=== PATIENT | male | born 1965 | race Caucasian/White ===

== ENCOUNTER 2016-05-11 12:28 | Emergency (ER) | payer MEDICAID ==
[2016-05-11 12:36] VITALS: BP 130/77
--- NOTE | 2016-05-11 13:11 | ED Physician Documentation ---
History of Present Illness - Stated complaint Stated Complaint: L KNEE PAIN - Chief complaint Chief Complaint: Ext Problem - History obtained from History obtained from: Patient, Family - History of Present Illness Timing: How many days ago (4) - Additonal information Additional information: 51 year old male with a history of gout presents with 4 days of right knee pain and swelling consistent with what he has had previously. He has pain with weightbearing and with range of motion to the knee. He has taken some aspirin without relief. Review of Systems Constitutional: denies: Fever, Chills, Myalgias, Fatigue Eyes: denies: Decreased vision Ears: denies: Ear pain Nose: denies: Congestion Throat: denies: Sore throat Cardiac: denies: Chest pain / pressure, Palpitations Respiratory: denies: Dyspnea, Cough GI: denies: Abdominal Pain, Nausea, Vomiting : denies: Dysuria Skin: denies: Rash Musculoskeletal: reports: Joint pain, Joint swelling, Pain with weight bearing. denies: Neck pain, Back pain Neurologic: denies: Generalized weakness, Focal weakness, Numbness PD PAST MEDICAL HISTORY - Past Medical History Cardiovascular: Hypertension, High cholesterol - Past Surgical History Past Surgical History: No - Present Medications Home Medications: Ambulatory Orders Medication Instructions Recorded Confirmed Fenofibrate 160 mg PO ONCE 06/18/14 10/06/14 Simvastatin 40 mg PO ONCE 06/18/14 10/06/14 Ibuprofen 600 mg PO TID #20 tablet 10/06/14 Oxycodone HCl/Acetaminophen 1 each PO Q4H PRN #20 tablet 10/06/14 [Percocet 5-325 mg Tablet] Indomethacin 25 - 50 mg PO Q6HR PRN #20 capsule 05/11/16 oxyCODONE [Roxicodone] 5 - 10 mg PO Q4-6H PRN #20 tablet 05/11/16 - Allergies Allergies/Adverse Reactions: Allergies Allergy/AdvReac Type Severity Reaction Status Date / Time acetaminophen [From Vicodin] Allergy Hives Verified 04/11/16 17:06 hydrocodone bitartrate * Allergy Hives Verified 04/11/16 17:06 [From Vicodin] shellfish derived Allergy Unknown Verified 05/11/16 12:36 - Social History Does the pt smoke?: No Smoking Status: Never smoker Does the pt drink ETOH?: Yes Does the pt have substance abuse?: No - Immunizations Immunizations are current?: Yes - POLST Patient has POLST: No PD ED PE NORMAL - Vitals Vital signs reviewed: Yes (normal) - General General: Alert and oriented X 3, No acute distress, Well developed/nourished - HEENT HEENT: Atraumatic, PERRL, EOMI - Respiratory Respiratory: No respiratory distress - Derm Derm: Normal color, Warm and dry, No rash - Extremities Extremities: Other (there is swelling and tenderness to the right knee with a palpable effusion. There is reduced range of motion secondary to pain and there is pain with compression of the patella. The joint is not warm or erythematous the distal neurovascular components are intact.) - Neuro Neuro: Alert and oriented X 3, No motor deficit, No sensory deficit, Normal speech - Psych Psych: Normal mood, Normal affect Results - Vitals Vitals: Vital Signs - 24 hr 05/11/16 12:34 Temperature 37.1 C Heart Rate 84 Respiratory 20 Rate Blood Pressure 130/77 O2 Saturation 97 Oxygen O2 Source Room air PD MEDICAL DECISION MAKING - ED course Complexity details: considered differential, d/w patient, d/w family ED course: 51-year-old male with recurrent gout has had a reaction previously to Vicodin he does not recall the medicines he has been given previously for treatment of this. Here in the emergency department he is given a dose of dexamethasone. Review of his chart shows the diagnosis of gout is questionable and history here today is consistent with gout or bursitis. He does not have fever and his course is similar to what he has had previously. Departure - Departure Disposition: 01 Home, Self Care Clinical Impression: Gout attack Qualifiers: Gout site: knee Gout etiology: idiopathic Laterality: right Qualified Code(s): M10.061 - Idiopathic gout, right knee Instructions: ED Arthritis Gout Follow-Up: Bri Soria PA-C [Primary Care Provider] - Prescriptions: Indomethacin 25 - 50 mg PO Q6HR PRN #20 capsule PRN Reason: Pain oxyCODONE [Roxicodone] 5 - 10 mg PO Q4-6H PRN #20 tablet PRN Reason: Pain
[2016-05-11] MEDS ORDERED: CHERRY SYRUP 10 ML UDC PO ONE (13:13)
[2016-05-11] MEDS ORDERED: DEXAMETHASONE 10 MG/ML VIAL ONE (13:13)
[2016-05-11] MEDS: DEXAMETHASONE 10 MG/ML VIAL PO STA (13:15)
== END 2016-05-11 13:25 | disposition home or self-care (01) ==
LOC: ED 12:28
DX: M10.061 Idiopathic gout, right knee (principal); I10 Essential (primary) hypertension; E78.00 Pure hypercholesterolemia, unspecified
CPT/HCPCS: 99283

== ENCOUNTER 2016-07-21 21:43 | Outpatient (CLI) | payer MEDICAID | END 2016-07-21 21:44 | disposition critical access hospital (66) | DX: M25.572 Pain in left ankle and joints of left foot (principal); W18.30XA Fall on same level, unspecified, initial encounter | CPT/HCPCS: A0425; A0429 ==

== ENCOUNTER 2016-07-21 22:00 | Emergency (ER) | payer MEDICAID | END 2016-07-21 23:17 | disposition home or self-care (01) | DX: S93.492A Sprain of other ligament of left ankle, initial encounter (principal); W18.30XA Fall on same level, unspecified, initial encounter; Y92.009 Unspecified place in unspecified non-institutional (private) residence as the place of occurrence of the external cause; F10.120 Alcohol abuse with intoxication, uncomplicated; I10 Essential (primary) hypertension ==

== ENCOUNTER 2016-09-09 13:16 | Outpatient (CLI) | payer MEDICAID | END 2016-09-09 13:17 | disposition home or self-care (01) | DX: E78.5 Hyperlipidemia, unspecified (principal); I10 Essential (primary) hypertension ==

== ENCOUNTER 2017-04-12 11:49 | Emergency (ER) | payer MEDICAID ==
--- NOTE | 2017-04-12 13:03 | XRAY Preliminary Report ---
Exam: XR FOOT 3 VIEW RT IMPRESSION: Minimal degenerative changes. No evidence of acute fracture. [facility] SITE ID: [id number]
--- NOTE | 2017-04-12 13:05 | XRAY Report ---
EXAM: RIGHT FOOT RADIOGRAPHY EXAM DATE: 04/12/2017 12:31 PM. CLINICAL HISTORY: Foot pain x1 week after fall. COMPARISON: None. TECHNIQUE: 3 views. FINDINGS: Bones: Normal. No fractures or bone lesions. Posterior calcaneal spurring is noted. 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 Soft Tissues: Normal. No soft tissue swelling. IMPRESSION: Minimal degenerative changes. No evidence of acute fracture. [facility] Referring Provider Line: [phone] SITE ID: [id number]
[2017-04-12] MEDS ORDERED: predniSONE 20 MG TABLET PO STA (13:08)
[2017-04-12] MEDS ORDERED: IBUPROFEN 600 MG TABLET PO STA (13:08)
--- NOTE | 2017-04-12 13:13 | ED Physician Documentation ---
History of Present Illness - Stated complaint Stated Complaint: R FOOT INJ - Chief complaint Chief Complaint: Ext Problem - History obtained from History obtained from: Patient, Family - History of Present Illness Timing: How many weeks ago (1) Pain level max: 8 Pain level now: 8 Improved by: rest Worsened by: walking - Additonal information Additional information: Patient is a 51 yo M who presents with R foot pain. Started a few days after falling off a deck. Also has a history of gout. Pain is worse with walking and better with rest. Has not taken anything for pain. Review of Systems Constitutional: denies: Fever Musculoskeletal: denies: Neck pain, Back pain Neurologic: denies: Focal weakness, Numbness, Headache PD PAST MEDICAL HISTORY - Past Medical History Cardiovascular: Hypertension, High cholesterol - Past Surgical History Past Surgical History: No - Present Medications Home Medications: Ambulatory Orders Medication Instructions Recorded Confirmed Fenofibrate 160 mg PO ONCE 06/18/14 10/06/14 Simvastatin 40 mg PO ONCE 06/18/14 10/06/14 Ibuprofen 600 mg PO TID #20 tablet 10/06/14 Oxycodone HCl/Acetaminophen 1 each PO Q4H PRN #20 tablet 10/06/14 [Percocet 5-325 mg Tablet] Indomethacin 25 - 50 mg PO Q6HR PRN #20 capsule 05/11/16 oxyCODONE [Roxicodone] 5 - 10 mg PO Q4-6H PRN #20 tablet 05/11/16 Ibuprofen [Motrin] 800 mg PO Q8H PRN #30 tablet 04/12/17 predniSONE [Prednisone] 20 mg PO DAILY #5 tablet 04/12/17 - Allergies Allergies/Adverse Reactions: Allergies Allergy/AdvReac Type Severity Reaction Status Date / Time acetaminophen [From Vicodin] Allergy Hives Verified 04/12/17 12:12 hydrocodone bitartrate * Allergy Hives Verified 04/12/17 12:12 [From Vicodin] shellfish derived Allergy Unknown Verified 04/12/17 12:12 - Social History Does the pt smoke?: No Smoking Status: Never smoker Does the pt drink ETOH?: Yes Does the pt have substance abuse?: No - Immunizations Immunizations are current?: Yes - POLST Patient has POLST: No PD ED PE NORMAL - Vitals Vital signs reviewed: Yes - General General: Alert and oriented X 3, No acute distress - HEENT HEENT: Moist mucous membranes - Derm Derm: Warm and dry - Extremities Extremities: Other (R foot - TTP over the R 1st MTP joint. Mild swelling and erythema. NVI. No gross deformity. o/w normal exam of the foot. ) - Neuro Neuro: Alert and oriented X 3 - Psych Psych: Normal mood, Normal affect Results - Vitals Vitals: Vital Signs - 24 hr 04/12/17 12:07 Temperature 36.8 C Heart Rate 78 Respiratory 16 Rate Blood Pressure 171/89 H O2 Saturation 98 Oxygen O2 Source Room air - Rads (name of study) R foot xray Radiology: Prelim report reviewed, EMP read contemporaneously, See rad report ( Minimal degenerative changes. No evidence of acute fracture. ) PD MEDICAL DECISION MAKING - ED course Complexity details: reviewed results, re-evaluated patient, considered differential, d/w patient ED course: Patient is a 51 yo M with gout vs foot sprain. Negative xray. Will place on steroids, nsaids, and post operative shoe. Given crutches as well. Patient counseled regarding signs and symptoms for which I believe and urgent re- evaluation would be necessary. Patient with good understanding of and agreement to plan and is comfortable going home at this time This document was made in part using voice recognition software. While efforts are made to proofread this document, sound alike and grammatical errors may occur. Departure - Departure Disposition: 01 Home, Self Care Clinical Impression: Foot sprain Qualifiers: Encounter type: initial encounter Laterality: right Qualified Code(s): S93.601A - Unspecified sprain of right foot, initial encounter Gout Qualifiers: Gout site: foot Gout etiology: unspecified cause Chronicity: acute Laterality: right Qualified Code(s): M10.9 - Gout, unspecified Condition: Good Instructions: ED Sprain Foot, ED Arthritis Gout, ED Diet Gout Follow-Up: your,doctor in 1 week [Other] Prescriptions: Ibuprofen [Motrin] 800 mg PO Q8H PRN #30 tablet PRN Reason: PAIN &/OR FEVER predniSONE [Prednisone] 20 mg PO DAILY #5 tablet Comments: Return if you worsen. You may bear weight as tolerated. Wear the postoperative shoe at home for comfort.
[2017-04-12 13:53] VITALS: BP 147/86
== END 2017-04-12 13:50 | disposition home or self-care (01) ==
LOC: ED 11:49
DX: S93.601A Unspecified sprain of right foot, initial encounter (principal); W13.8XXA Fall from, out of or through other building or structure, initial encounter; M10.9 Gout, unspecified; I10 Essential (primary) hypertension
CPT/HCPCS: 73630; 99283; A9270; J7512

== ENCOUNTER 2017-04-22 10:08 | Outpatient (CLI) | payer MEDICAID ==
[2017-04-22 14:19] LABS: BASOPHILS # (AUTO) 0.1 10^3/uL (0.0-0.1); BASOPHILS % (AUTO) 0.9 %; EOSINOPHILS # (AUTO) 0.4 10^3/uL (0.0-0.7); EOSINOPHILS % (AUTO) 4.9 %; HCT - HEMATOCRIT 43.9 % (42.0-52.0); HGB - HEMOGLOBIN 14.9 g/dL (14.0-18.0); LYMPHOCYTES # (AUTO) 1.7 10^3/uL (1.5-3.5); LYMPHOCYTES % (AUTO) 21.9 %; MEAN CORPUSCULAR HEMOGLOBIN 29.6 pg (27.0-31.0); MEAN CORPUSCULAR HGB CONC 33.8 g/dL (32.0-36.0); MEAN CORPUSCULAR VOLUME 87.4 fL (80.0-94.0); MEAN PLATELET VOLUME 8.5 fL (7.4-11.4); MONOCYTES # (AUTO) 0.6 10^3/uL (0.0-1.0); MONOCYTES % (AUTO) 7.4 %; NEUTROPHILS # (AUTO) 4.9 10^3/uL (1.5-6.6); NEUTROPHILS % (AUTO) 64.9 %; NUCLEATED RED BLOOD CELLS AUTO 0.1 /100WBC; RED BLOOD COUNT 5.02 10^6/uL (4.70-6.10); RED CELL DISTRIBUTION WIDTH 13.8 % (12.0-15.0); UNCORRECTED WHITE BLOOD COUNT 7.6 x10^3/uL; WHITE BLOOD COUNT 7.6 x10^3/uL (4.8-10.8)
[2017-04-22 14:35] LABS: BILIRUBIN,TOTAL 0.5 mg/dL (0.2-1.0); BUN - BLOOD UREA NITROGEN 16 mg/dL (6-20); CALCIUM 9.2 mg/dL (8.5-10.3); CARBON DIOXIDE - CO2 27 mmol/L (21-32); CHLORIDE 101 mmol/L (101-111); CHOL/HDL RATIO 4.6 (<5.0); CHOLESTEROL 221 mg/dL; CREATININE 0.7 mg/dL (0.6-1.2); GFR - MDRD 118 (>89); GLUCOSE 101 mg/dL (70-100); HDL CHOLESTEROL 48 mg/dL; LDL/HDL RATIO 2.3 (<3.6); POTASSIUM 3.9 mmol/L (3.5-5.0); SODIUM 135 mmol/L (135-145); TOTAL PROTEIN 8.1 g/dL (6.7-8.2); TRIGLYCERIDES 322 mg/dL; VLDL CHOLESTEROL 64 mg/dL
[2017-04-22 14:39] LABS: HEMOGLOBIN A1C 0.62 g/dL
== END 2017-04-22 10:09 | disposition home or self-care (01) ==
LOC: LAB.N 10:08
PROVIDERS: ATTEND Nurse Practitioner Gerontology
DX: E78.5 Hyperlipidemia, unspecified (principal); I10 Essential (primary) hypertension
CPT/HCPCS: 36415; 80053; 80061; 83036; 85025

== ENCOUNTER 2017-08-12 07:31 | Emergency (ER) | payer MEDICAID ==
[2017-08-12] MEDS ORDERED: DEXAMETHASONE 10 MG/ML VIAL PO STA (08:22)
[2017-08-12] MEDS ORDERED: oxyCOD/ACETAMIN 5 MG/325 MG TABLET PO STA (08:22)
--- NOTE | 2017-08-12 08:53 | ED Physician Documentation ---
History of Present Illness - Stated complaint Stated Complaint: KNEE PX/SWOLLEN - Chief complaint Chief Complaint: Ext Problem - Additonal information Additional information: hx from pt 52 male hx gout pain swelling redness to R knee same as prior bouts of gout which also affected his knee on allopurinol s relief no fever no open wounds Review of Systems Constitutional: denies: Fever Musculoskeletal: reports: Joint pain, Joint swelling Immunocompromised: denies: Immunocompromised PD PAST MEDICAL HISTORY - Past Medical History Cardiovascular: Hypertension, High cholesterol - Past Surgical History Past Surgical History: No - Present Medications Home Medications: Ambulatory Orders Medication Instructions Recorded Confirmed Fenofibrate 160 mg PO ONCE 06/18/14 10/06/14 Simvastatin 40 mg PO ONCE 06/18/14 10/06/14 Ibuprofen 600 mg PO TID #20 tablet 10/06/14 Oxycodone HCl/Acetaminophen 1 each PO Q4H PRN #20 tablet 10/06/14 [Percocet 5-325 mg Tablet] Ibuprofen [Motrin] 800 mg PO Q8H PRN #30 tablet 04/12/17 Indomethacin [Indocin] 25 mg PO TIDWM PRN #30 capsule 08/12/17 Oxycodone HCl/Acetaminophen 1 each PO Q6HR PRN #10 tablet 08/12/17 [Percocet 5-325 mg Tablet] - Allergies Allergies/Adverse Reactions: Allergies Allergy/AdvReac Type Severity Reaction Status Date / Time acetaminophen [From Vicodin] Allergy Hives Verified 08/12/17 07:51 hydrocodone bitartrate * Allergy Hives Verified 08/12/17 07:51 [From Vicodin] lisinopril Allergy Rash Verified 08/12/17 07:57 shellfish derived Allergy Unknown Verified 08/12/17 07:51 - Social History Does the pt smoke?: No Smoking Status: Never smoker Does the pt drink ETOH?: Yes Does the pt have substance abuse?: No - Immunizations Immunizations are current?: Yes - POLST Patient has POLST: No PD ED PE NORMAL - Vitals Vital signs reviewed: Yes - Cardiac Cardiac: RRR - Respiratory Respiratory: No respiratory distress, Clear bilaterally - Extremities Extremities: Other (R knee effusion, red, warm, able to range with moderate pain , no oepn wounds anywhere on leg foot including between the toes) Results - Vitals Vitals: Vital Signs - 24 hr 08/12/17 08/12/17 07:48 09:58 Temperature 35.8 C L Heart Rate 72 96 Respiratory 14 14 Rate Blood Pressure 159/105 H 165/94 H O2 Saturation 99 96 Oxygen O2 Source Room air - Rads (name of study) knee Radiology: See rad report (neg) PD MEDICAL DECISION MAKING - ED course ED course: appears to be gout with a known hx of gout including knee no fever or open wounds to suggest septic joint will tx as gout and asked pt to return to see me tomorrow if not sig better and if not responding to gout tx as expected might reconsider need for arthrocentesis only home med is BP med Departure - Departure Disposition: Home, Self Care Clinical Impression: Gout Qualifiers: Gout site: knee Gout etiology: unspecified cause Chronicity: acute Laterality: right Qualified Code(s): M10.9 - Gout, unspecified Condition: Good Instructions: ED Arthritis Gout Follow-Up: Vince Larose PA-C [Primary Care Provider] - Prescriptions: Oxycodone HCl/Acetaminophen [Percocet 5-325 mg Tablet] 1 each PO Q6HR PRN #10 tablet PRN Reason: Severe Pain Indomethacin [Indocin] 25 mg PO TIDWM PRN #30 capsule PRN Reason: gout pain Comments: Please come back and see me tomorrow morning for a recheck unless completely better Also your blood pressure was high today - probably because of the pain - please get it rechecked Forms: Activity restrictions
[2017-08-12 09:59] VITALS: BP 165/94
--- NOTE | 2017-08-12 10:21 | XRAY Report ---
EXAM: RIGHT KNEE RADIOGRAPHY EXAM DATE: 08/12/2017 09:17 AM. CLINICAL HISTORY: Knee pain and swelling. COMPARISON: 06/18/2014. TECHNIQUE: 4 views. FINDINGS: Bones: No acute fracture. Joints: Possible trace effusion. No dislocation. Soft Tissues: Anterior soft tissue swelling, increased from prior. IMPRESSION: No acute osseous abnormality. [facility] Referring Provider Line: [phone] SITE ID: [id number]
== END 2017-08-12 10:35 | disposition home or self-care (01) ==
LOC: ED 07:31
DX: M10.9 Gout, unspecified (principal); I10 Essential (primary) hypertension; E78.00 Pure hypercholesterolemia, unspecified
CPT/HCPCS: 73564; 99283; A9270

== ENCOUNTER 2017-10-31 12:31 | Emergency (ER) | payer MEDICAID ==
--- NOTE | 2017-10-31 12:46 | ED Physician Documentation ---
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 No other injuries.) Review of Systems Constitutional: reports: Reviewed and negative Cardiac: reports: Reviewed and negative Respiratory: reports: Reviewed and negative PD PAST MEDICAL HISTORY - Past Medical History Cardiovascular: Hypertension, High cholesterol - Past Surgical History Past Surgical History: No - Present Medications Home Medications: Ambulatory Orders Medication Instructions Recorded Confirmed Simvastatin 40 mg PO ONCE 06/18/14 10/06/14 Oxycodone HCl/Acetaminophen 1 - 2 tab PO Q4H PRN #10 tablet 10/31/17 [Percocet 5-325 mg Tablet] - Allergies Allergies/Adverse Reactions: Allergies Allergy/AdvReac Type Severity Reaction Status Date / Time acetaminophen [From Vicodin] Allergy Hives Verified 10/31/17 12:39 hydrocodone bitartrate * Allergy Hives Verified 10/31/17 12:39 [From Vicodin] lisinopril Allergy Rash Verified 10/31/17 12:39 shellfish derived Allergy Unknown Verified 10/31/17 12:39 - Social History Does the pt smoke?: No Smoking Status: Never smoker Does the pt drink ETOH?: Yes Does the pt have substance abuse?: No - Immunizations Immunizations are current?: Yes - POLST Patient has POLST: No PD ED PE NORMAL - Vitals Vital signs reviewed: Yes - General General: Alert and oriented X 3, No acute distress - Neck Neck: Supple, no meningeal sign, No bony TTP - Extremities Extremities: Other (Right wrist and hand is tender and swollen, especially over the dorsal wrist and the medial side of the hand with limited range of motion of all fingers and basically no ability to flex or extend at the wrist. He is mildly tender over the snuffbox but much less so than he is over the dorsal wrist. He has normal neurovascular status with the exception of slightly diminished sensation in the pinky but there is significant swelling across that side of the hand.) - Neuro Neuro: Alert and oriented X 3, Normal speech - Psych Psych: Normal mood, Normal affect Results - Vitals Vitals: Vital Signs - 24 hr 10/31/17 12:37 Temperature 36.5 C Heart Rate 69 Respiratory 18 Rate Blood Pressure 198/97 H O2 Saturation 98 Oxygen O2 Source Room air - Rads (name of study) X-rays of the right Wrist and hand Radiology: EMP read contemporaneously (Negative except for degenerative changes) PD MEDICAL DECISION MAKING - Sepsis Event Vital Signs: Vital Signs - 24 hr 10/31/17 12:37 Temperature 36.5 C Heart Rate 69 Respiratory 18 Rate Blood Pressure 198/97 H O2 Saturation 98 Oxygen O2 Source Room air Departure - Departure Disposition: 01 Home, Self Care Clinical Impression: Sprain of wrist, right Qualifiers: Encounter type: initial encounter Qualified Code(s): S63.501A - Unspecified sprain of right wrist, initial encounter Condition: Good Record reviewed to determine appropriate education?: Yes Instructions: ED Sprain Wrist Follow-Up: [facility] [Provider Group] - Within 1 week Prescriptions: Oxycodone HCl/Acetaminophen [Percocet 5-325 mg Tablet] 1 - 2 tab PO Q4H PRN #10 tablet PRN Reason: Pain Comments: Your blood pressure was elevated today on check into the emergency department. This does not mean that you have hypertension, it is a common phenomenon to come to the emergency department and have elevated blood pressure. I recommend that you see your primary care physician within the week to have it rechecked when you are feeling better.
[2017-10-31] MEDS ORDERED: IBUPROFEN 800 MG TABLET PO STA (13:32)
--- NOTE | 2017-10-31 13:32 | XRAY Report ---
Procedure Date: 10/31/2017 Accession Number: [id number] / [id number] Procedure: XR - Hand 3 View RT CPT Code: FULL RESULT: EXAM: RIGHT HAND RADIOGRAPHY, 3 VIEWS EXAM DATE: 10/31/2017 01:14 PM. CLINICAL HISTORY: 52-year-old male fell down stairs injuring hand and wrist. COMPARISON: None. TECHNIQUE: Frontal, lateral and oblique views. FINDINGS: Bones: Normal. No fractures or bone lesions. Joints: Minor osteoarthritic changes in the IP joints of the thumb. Joint spaces otherwise unremarkable. No subluxations or joint effusion. Soft Tissues: Normal. No soft tissue swelling. IMPRESSION: No posttraumatic abnormality. Minor osteoarthritic changes IP joint of the thumb. [facility]
--- NOTE | 2017-10-31 13:35 | XRAY Report ---
Procedure Date: 10/31/2017 Accession Number: [id number] / [id number] Procedure: XR - Wrist 4 View RT CPT Code: FULL RESULT: EXAM: RIGHT WRIST RADIOGRAPHY, 4 VIEWS EXAM DATE: 10/31/2017 01:15 PM. CLINICAL HISTORY: 52-year-old male fell down stairs, injuring hand and wrist. COMPARISON: None. TECHNIQUE: Frontal, lateral, oblique and carpal navicular views. FINDINGS: Bones: Minor spurring of the radial styloid, otherwise normal. No fractures or bone lesions. Joints: Normal. No subluxations or joint effusion. Soft Tissues: Normal. No soft tissue swelling. IMPRESSION: Minor degenerative spurring of the radial styloid. Otherwise unremarkable study. No posttraumatic abnormality. [facility]
[2017-10-31 13:58] VITALS: BP 212/102
== END 2017-10-31 13:56 | disposition home or self-care (01) ==
LOC: ED 12:31
DX: S63.501A Unspecified sprain of right wrist, initial encounter (principal); W18.30XA Fall on same level, unspecified, initial encounter; Y92.008 Other place in unspecified non-institutional (private) residence as the place of occurrence of the external cause; I10 Essential (primary) hypertension; E78.00 Pure hypercholesterolemia, unspecified
CPT/HCPCS: 73110; 73130; 99283; A9270

== ENCOUNTER 2018-09-03 15:11 | Emergency (ER) | payer OTHER, MEDICAID ==
[2018-09-03] MEDS ORDERED: TETANUS/DIPHTHERIA/PERTUSSIS 0.5 ML SYRINGE IM ONE (15:31)
--- NOTE | 2018-09-03 16:13 | ED Physician Documentation ---
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) - History of Present Illness Mechanism of injury: Fell Where injury occurred: Work Timing - onset: How many hours ago (1) Injury(ies) location: Head, Chest (L chest wall), Left Uppper Extremity (wrist/hand) Pain level max: 6 Pain level now: 4 Quality of pain: Pain, Throbbing, Aching Associated symptoms: No: LOC, AMS, Amnesia, Seizures, Ear drainage, Nasal drainage, Neck pain, Weakness, Paresthesias, Dyspnea, Nausea / vomiting, Hematemesis, Abdominal distension Symptoms improve with: Rest Worsens with: Movement Recently seen: Not recently seen - Additional information Additional information: was on ladder, fell off top roof onto lower roof. Review of Systems Constitutional: denies: Fever, Chills Respiratory: denies: Cough GI: denies: Abdominal Pain, Nausea, Vomiting Skin: denies: Rash Musculoskeletal: denies: Neck pain, Back pain Neurologic: reports: Headache, Head injury (states "was dazed") PD PAST MEDICAL HISTORY - Past Medical History Past Medical History: Yes Cardiovascular: Hypertension, High cholesterol - Past Surgical History Past Surgical History: No - Present Medications Home Medications: Ambulatory Orders Medication Instructions Recorded Confirmed Simvastatin 40 mg PO ONCE 06/18/14 10/06/14 Oxycodone HCl/Acetaminophen 1 - 2 tab PO Q4H PRN #10 tablet 10/31/17 [Percocet 5-325 mg Tablet] Oxycodone HCl/Acetaminophen 1 - 2 each PO Q6H PRN #10 tablet 09/03/18 [Percocet 5-325 mg Tablet] hydroCHLOROthiazide [Hydrodiuril] 25 mg PO DAILY #30 tablet 09/03/18 - Allergies Allergies/Adverse Reactions: Allergies Allergy/AdvReac Type Severity Reaction Status Date / Time acetaminophen [From Vicodin] Allergy Hives Verified 09/03/18 15:18 hydrocodone bitartrate * Allergy Hives Verified 09/03/18 15:18 [From Vicodin] lisinopril Allergy Rash Verified 09/03/18 15:18 shellfish derived Allergy Unknown Verified 09/03/18 15:18 - Social History Does the pt smoke?: No Smoking Status: Never smoker Does the pt drink ETOH?: Yes Does the pt have substance abuse?: No - Immunizations Immunizations are current?: Yes Immunizations: TDAP >10years/unknown - POLST Patient has POLST: No PD ED PE NORMAL - Vitals Vital signs reviewed: Yes - General General: Alert and oriented X 3, No acute distress, Well developed/nourished - HEENT HEENT: PERRL, Ears normal, Moist mucous membranes, Pharynx benign, Dentition benign, Other (abrasion L upper eyelid. no bleeding. normal eye exam. no FB sensation. no hyphema. ) - Neck Neck: Supple, no meningeal sign, No bony TTP - Cardiac Cardiac: RRR, Strong equal pulses - Respiratory Respiratory: No respiratory distress, Clear bilaterally, Other (TTP L chest wall no crepitus. no ecchymosis. Tender over anterior axillary line ribs 5-8.) - Abdomen Abdomen: Soft, Non tender, Non distended - Back Back: No spinal TTP - Derm Derm: Warm and dry - Extremities Extremities: No deformity, Other (TTP L wrist diffusely, but mainly over the 1st MC. No snuffbox tenderness. NVI) - Neuro Neuro: Alert and oriented X 3 - Psych Psych: Normal mood, Normal affect Results - Vitals Vitals: Vital Signs - 24 hr 09/03/18 09/03/18 15:14 17:43 Temperature 36.9 C Heart Rate 87 74 Respiratory 18 18 Rate Blood Pressure 193/103 H 174/109 H O2 Saturation 98 97 Oxygen O2 Source Room air - Rads (name of study) head CT Radiology: Prelim report reviewed, EMP read contemporaneously, See rad report (no acute abnormality) L ribs w/ CXR Radiology: Prelim report reviewed, EMP read contemporaneously, See rad report (no acute findings.) L wrist xray Radiology: Prelim report reviewed, EMP read contemporaneously, See rad report (no acute bony injuries) PD MEDICAL DECISION MAKING - ED course Complexity details: reviewed results, re-evaluated patient, considered differential, d/w patient ED course: Abrasions were cleansed and bandaged. Patient tolerated well. No acute findings on head CT. No acute findings on left rib x-rays with PA chest or left wrist x-ray. No neck or back pain. No neurological deficits. Tdap given. Patient counseled regarding signs and symptoms for which I believe and urgent re-evaluation would be necessary. Patient with good understanding of and agreement to plan and is comfortable going home at this time This document was made in part using voice recognition software. While efforts are made to proofread this document, sound alike and grammatical errors may occur. Departure - Departure Disposition: 01 Home, Self Care Clinical Impression: Head injury Qualifiers: Encounter type: initial encounter Qualified Code(s): S09.90XA - Unspecified injury of head, initial encounter Eyelid abrasion Qualifiers: Encounter type: initial encounter Laterality: left Qualified Code(s): S00.212A - Abrasion of left eyelid and periocular area, initial encounter Contusion of rib on left side Qualifiers: Encounter type: initial encounter Qualified Code(s): S20.212A - Contusion of left front wall of thorax, initial encounter Left thumb sprain Qualifiers: Encounter type: initial encounter Sprain of finger site: unspecified site Qualified Code(s): S63.602A - Unspecified sprain of left thumb, initial encounter Condition: Good Instructions: ED Contusion Chest Wall, ED Head Injury Closed, ED Sprain Hand, ED Contusion Vs Minor Fx Rib Follow-Up: your,doctor in 1 week [Other] Prescriptions: hydroCHLOROthiazide [Hydrodiuril] 25 mg PO DAILY #30 tablet Oxycodone HCl/Acetaminophen [Percocet 5-325 mg Tablet] 1 - 2 each PO Q6H PRN #10 tablet PRN Reason: pain Comments: Return if you worsen. Wear the splint for the next week on your left hand. Follow-up with your doctor next week for repeat evaluation. Return if you worsen. Do not drink alcohol or drive while on narcotic pain medicine. Note that many narcotic pain relievers also contain tylenol/acetaminophen. Please ensure that your total dose of acetaminophen from all sources does not exceed 3 grams (3000mg) per day. You may constipated on this medication, take a stool softener such as "Colace" twice a day while you are on it. Also recommend a tcrf-ksy-syrkwtk laxative such as senna or MiraLAX any day that you do not have a bowel movement. If you received narcotic pain medication in the emergency department, do not drive or operate machinery for the next 24 hours. Forms: Activity restrictions Discharge Date/Time: 09/03/18 17:59
--- NOTE | 2018-09-03 16:40 | CT Report ---
Reason: fall, head injury Procedure Date: 09/03/2018 Accession Number: [id number] / [id number] Procedure: CT - HEAD WO CPT Code: FULL RESULT: EXAM: CT HEAD EXAM DATE: 09/03/2018 04:26 PM. CLINICAL HISTORY: Fall, head injury. COMPARISON: HEAD W/O 04/11/2016 5:39 PM. TECHNIQUE: Multiaxial CT images were obtained from the foramen magnum to the vertex. Reformats: Sagittal and coronal. IV contrast: None. In accordance with CT protocol optimization, one or more of the following dose reduction techniques were utilized for this exam: automated exposure control, adjustment of mA and/or KV based on patient size, or use of iterative reconstructive technique. FINDINGS: Parenchyma: No intraparenchymal hemorrhage. No evidence of mass, midline shift, or CT findings of infarction. Steele-white differentiation is distinct. Extraaxial Spaces: Normal for age. No subdural or epidural collections identified. Ventricles: Normal in size and position. Sinuses and Orbits: Imaged paranasal sinuses, orbits, and mastoids show no significant abnormality. Bones: No evidence of fracture or calvarial defect. Other: None. IMPRESSION: Normal head CT. RADIA
--- NOTE | 2018-09-03 16:42 | XRAY Report ---
Reason: fall, L rib injury Procedure Date: 09/03/2018 Accession Number: [id number] / [id number] Procedure: XR - Ribs w/PA Chest LT CPT Code: FULL RESULT: EXAM: LEFT RIB RADIOGRAPHY EXAM DATE: 09/03/2018 04:26 PM. CLINICAL HISTORY: Fall from ladder, L rib injury and pain. COMPARISON: None. TECHNIQUE: 1 view of the chest and 2 views of the ribs. FINDINGS: Bones: Normal. No fracture or bone lesion. A marker is placed near the left anterior eighth intercostal space. Lungs: No focal opacities. No pneumothorax. No pleural effusions. Mediastinum: Heart and mediastinal contours are unremarkable. Other: None. IMPRESSION: Normal chest and rib radiography. RADIA
--- NOTE | 2018-09-03 17:14 | XRAY Report ---
Reason: fall,L wrist injury Procedure Date: 09/03/2018 Accession Number: [id number] / [id number] Procedure: XR - Wrist 4 View LT CPT Code: FULL RESULT: EXAM: LEFT WRIST RADIOGRAPHY EXAM DATE: 09/03/2018 04:26 PM. CLINICAL HISTORY: Fall, left wrist injury. COMPARISON: None. TECHNIQUE: 4 views. FINDINGS: Chronic nonunion ulnar styloid fracture versus accessory ossicle. No evidence for acute fracture. Mild first carpometacarpal osteoarthritis. No subluxation. IMPRESSION: No evidence for acute fracture. Mild first carpometacarpal osteoarthritis. RADIA
[2018-09-03 17:44] VITALS: BP 174/109
== END 2018-09-03 17:59 | disposition home or self-care (01) ==
LOC: ED 15:11
DX: S09.90XA Unspecified injury of head, initial encounter (principal); S00.212A Abrasion of left eyelid and periocular area, initial encounter; S20.212A Contusion of left front wall of thorax, initial encounter; S63.602A Unspecified sprain of left thumb, initial encounter; W11.XXXA Fall on and from ladder, initial encounter; Y93.89 Activity, other specified; Y99.0 Civilian activity done for income or pay; Z23 Encounter for immunization; I10 Essential (primary) hypertension
CPT/HCPCS: 70450; 90471; 99283

== ENCOUNTER 2019-01-26 07:42 | Outpatient (CLI) | payer MEDICAID ==
[2019-01-26 13:26] LABS: BASOPHILS # (AUTO) 0.1 10^3/uL (0.0-0.1); BASOPHILS % (AUTO) 1.2 %; EOSINOPHILS # (AUTO) 0.3 10^3/uL (0.0-0.7); EOSINOPHILS % (AUTO) 4.6 %; HGB - HEMOGLOBIN 15.2 g/dL (14.0-18.0); LYMPHOCYTES # (AUTO) 2.5 10^3/uL (1.5-3.5); LYMPHOCYTES % (AUTO) 36.7 %; MEAN CORPUSCULAR HEMOGLOBIN 32.3 pg (27.0-31.0); MEAN CORPUSCULAR HGB CONC 34.5 g/dL (32.0-36.0); MEAN CORPUSCULAR VOLUME 93.6 fL (80.0-94.0); MEAN PLATELET VOLUME 9.9 fL (7.4-11.4); MONOCYTES # (AUTO) 0.5 10^3/uL (0.0-1.0); MONOCYTES % (AUTO) 7.9 %; NEUTROPHILS # (AUTO) 3.3 10^3/uL (1.5-6.6); NEUTROPHILS % (AUTO) 49.2 %; PLT - PLATELET COUNT 286 10^3/uL (130-450); RED BLOOD COUNT 4.71 10^6/uL (4.70-6.10); RED CELL DISTRIBUTION WIDTH 13.3 % (12.0-15.0); WHITE BLOOD COUNT 6.7 x10^3/uL (4.8-10.8)
[2019-01-26 13:42] LABS: ALBUMIN 4.2 g/dL (3.2-5.5); ALBUMIN/GLOBULIN RATIO 1.1 (1.0-2.2); ALKALINE PHOSPHATASE 56 IU/L (42-121); ALT ALANINE AMINOTRANSFERASE 32 IU/L (10-60); AST ASPARTATE AMINOTRANSFERASE 21 IU/L (10-42); BILIRUBIN,TOTAL 0.4 mg/dL (0.2-1.0); BUN - BLOOD UREA NITROGEN 15 mg/dL (6-20); CALCIUM 8.9 mg/dL (8.5-10.3); CARBON DIOXIDE - CO2 27 mmol/L (21-32); CHLORIDE 105 mmol/L (101-111); CHOL/HDL RATIO 3.6 (<5.0); CHOLESTEROL 165 mg/dL; CREATININE 0.8 mg/dL (0.6-1.2); GFR - MDRD 101 (>89); GLUCOSE 114 mg/dL (70-100); HDL CHOLESTEROL 46 mg/dL; LDL CHOLESTEROL,CALCULATED 51 mg/dL; LDL/HDL RATIO 1.1 (<3.6); SODIUM 141 mmol/L (135-145); TOTAL PROTEIN 7.9 g/dL (6.7-8.2); URIC ACID 8.7 mg/dL (2.6-7.2); VLDL CHOLESTEROL 68 mg/dL
== END 2019-01-26 23:59 | disposition home or self-care (01) ==
LOC: LAB.N 07:42
PROVIDERS: ATTEND Nurse Practitioner Gerontology
DX: E78.5 Hyperlipidemia, unspecified (principal); I10 Essential (primary) hypertension; M10.9 Gout, unspecified
CPT/HCPCS: 36415; 80053; 80061; 83721; 84550; 85025

== ENCOUNTER 2019-01-30 17:54 | Emergency (ER) | payer MEDICAID ==
[2019-01-30 18:09] VITALS: BP 180/97
--- NOTE | 2019-01-30 19:42 | XRAY Report ---
Reason: Trauma Procedure Date: 01/30/2019 Accession Number: [id number] / [id number] Procedure: XR - Wrist 4 View RT CPT Code: FULL RESULT: EXAM: RIGHT WRIST RADIOGRAPHY EXAM DATE: 01/30/2019 07:19 PM. CLINICAL HISTORY: Right wrist Trauma. Fall on outstretched hand COMPARISON: WRIST 4 VIEW LT 09/03/2018 4:17 PM WRIST 4 VIEW RT 10/31/2017 1:16 PM. TECHNIQUE: 4 views. FINDINGS: Bones: No fracture. There is a bipartite scaphoid. Joints: Mild radiocarpal osteoarthritis. Soft Tissues: Unremarkable IMPRESSION: No acute radiographic abnormality. RADIA
== END 2019-01-30 19:44 | disposition left against medical advice (07) ==
LOC: ED 17:54
DX: Z53.21 Procedure and treatment not carried out due to patient leaving prior to being seen by health care provider (principal)

== ENCOUNTER 2019-02-01 14:57 | Outpatient (CLI) | payer MEDICAID ==
[2019-02-01 18:38] LABS: BASOPHILS # (AUTO) 0.1 10^3/uL (0.0-0.1); BASOPHILS % (AUTO) 0.6 %; EOSINOPHILS # (AUTO) 0.2 10^3/uL (0.0-0.7); EOSINOPHILS % (AUTO) 1.4 %; HGB - HEMOGLOBIN 14.9 g/dL (14.0-18.0); LYMPHOCYTES # (AUTO) 1.7 10^3/uL (1.5-3.5); MEAN CORPUSCULAR HEMOGLOBIN 30.9 pg (27.0-31.0); MEAN CORPUSCULAR VOLUME 93.6 fL (80.0-94.0); MEAN PLATELET VOLUME 10.4 fL (7.4-11.4); MONOCYTES # (AUTO) 1.3 10^3/uL (0.0-1.0); MONOCYTES % (AUTO) 9.2 %; NEUTROPHILS # (AUTO) 10.8 10^3/uL (1.5-6.6); NEUTROPHILS % (AUTO) 76.3 %; PLT - PLATELET COUNT 291 10^3/uL (130-450); RED BLOOD COUNT 4.82 10^6/uL (4.70-6.10); RED CELL DISTRIBUTION WIDTH 13.1 % (12.0-15.0); WHITE BLOOD COUNT 14.2 x10^3/uL (4.8-10.8)
== END 2019-02-01 23:59 | disposition home or self-care (01) ==
LOC: LAB.N 14:57
PROVIDERS: ATTEND Nurse Practitioner Gerontology
DX: M10.9 Gout, unspecified (principal); L03.90 Cellulitis, unspecified
CPT/HCPCS: 36415; 84550; 85025

== ENCOUNTER 2019-02-02 09:33 | Outpatient (CLI) | payer MEDICAID ==
--- NOTE | 2019-02-03 04:55 | XRAY Report ---
Reason: R wrist pain Procedure Date: 02/02/2019 Accession Number: [id number] / [id number] Procedure: XRN - Wrist 3 View RT CPT Code: FULL RESULT: EXAM: RIGHT WRIST RADIOGRAPHY EXAM DATE: 02/02/2019 09:52 AM. CLINICAL HISTORY: R wrist pain. COMPARISON: 01/30/2019. TECHNIQUE: 3 views. FINDINGS: Bones: No acute fracture seen. Chronic lucency at the scaphoid waist, presumably developmental. Joints: No dislocation seen. Minimal degenerative changes in the radiocarpal joint. Soft Tissues: Soft tissue swelling. IMPRESSION: 1. No acute fracture or dislocation seen. 2. Soft tissue swelling. RADIA
== END 2019-02-02 09:34 | disposition home or self-care (01) ==
LOC: DI.N 09:33
PROVIDERS: ATTEND Nurse Practitioner Gerontology
DX: M25.531 Pain in right wrist (principal); R22.31 Localized swelling, mass and lump, right upper limb

== ENCOUNTER 2019-02-15 11:28 | Outpatient (CLI) | payer MEDICAID ==
[2019-02-15 18:50] LABS: BASOPHILS # (AUTO) 0.1 10^3/uL (0.0-0.1); BASOPHILS % (AUTO) 0.5 %; EOSINOPHILS # (AUTO) 0.3 10^3/uL (0.0-0.7); EOSINOPHILS % (AUTO) 2.7 %; HGB - HEMOGLOBIN 14.8 g/dL (14.0-18.0); LYMPHOCYTES # (AUTO) 1.8 10^3/uL (1.5-3.5); LYMPHOCYTES % (AUTO) 15.9 %; MEAN CORPUSCULAR HEMOGLOBIN 30.6 pg (27.0-31.0); MEAN PLATELET VOLUME 10.2 fL (7.4-11.4); MONOCYTES # (AUTO) 0.7 10^3/uL (0.0-1.0); MONOCYTES % (AUTO) 5.8 %; NEUTROPHILS # (AUTO) 8.6 10^3/uL (1.5-6.6); NEUTROPHILS % (AUTO) 74.7 %; PLT - PLATELET COUNT 336 10^3/uL (130-450); RED BLOOD COUNT 4.83 10^6/uL (4.70-6.10); RED CELL DISTRIBUTION WIDTH 12.7 % (12.0-15.0); WHITE BLOOD COUNT 11.6 x10^3/uL (4.8-10.8)
== END 2019-02-15 23:59 | disposition home or self-care (01) ==
LOC: LAB.N 11:28
PROVIDERS: ATTEND Nurse Practitioner Gerontology
DX: L03.90 Cellulitis, unspecified (principal)
CPT/HCPCS: 36415; 85025

== ENCOUNTER 2019-02-20 23:19 | Outpatient (CLI) | payer MEDICAID | END 2019-02-20 23:20 | disposition EMS.NT | LOC: EMS 23:19 | PROVIDERS: ATTEND Surgery | DX: S01.81XA Laceration without foreign body of other part of head, initial encounter (principal); W18.30XA Fall on same level, unspecified, initial encounter; Y93.01 Activity, walking, marching and hiking ==

== ENCOUNTER 2019-03-05 13:37 | Outpatient (CLI) | payer MEDICAID ==
[2019-03-05 19:18] LABS: BASOPHILS % (AUTO) 0.5 %; EOSINOPHILS # (AUTO) 0.1 10^3/uL (0.0-0.7); EOSINOPHILS % (AUTO) 1.7 %; HGB - HEMOGLOBIN 14.1 g/dL (14.0-18.0); LYMPHOCYTES % (AUTO) 26.8 %; MEAN CORPUSCULAR HEMOGLOBIN 31.1 pg (27.0-31.0); MEAN CORPUSCULAR HGB CONC 34.2 g/dL (32.0-36.0); MEAN CORPUSCULAR VOLUME 90.9 fL (80.0-94.0); MEAN PLATELET VOLUME 10.1 fL (7.4-11.4); MONOCYTES # (AUTO) 0.8 10^3/uL (0.0-1.0); NEUTROPHILS # (AUTO) 4.5 10^3/uL (1.5-6.6); NEUTROPHILS % (AUTO) 59.9 %; PLT - PLATELET COUNT 313 10^3/uL (130-450); RED BLOOD COUNT 4.53 10^6/uL (4.70-6.10); RED CELL DISTRIBUTION WIDTH 12.7 % (12.0-15.0); WHITE BLOOD COUNT 7.6 x10^3/uL (4.8-10.8)
== END 2019-03-05 23:59 | disposition home or self-care (01) ==
LOC: LAB.N 13:37
PROVIDERS: ATTEND Nurse Practitioner Gerontology
DX: L03.90 Cellulitis, unspecified (principal)
CPT/HCPCS: 36415; 85025

== ENCOUNTER 2019-04-11 14:08 | Outpatient (CLI) | payer MEDICAID ==
--- NOTE | 2019-04-12 02:25 | Ultrasound Report ---
Reason: SWELLING OF RT ARM Procedure Date: 04/11/2019 Accession Number: [id number] / [id number] Procedure: US - Duplex Ext Veins Right CPT Code: Final Report FULL RESULT: EXAM: RIGHT UPPER EXTREMITY VENOUS ULTRASOUND EXAM DATE: 04/11/2019 03:44 PM. CLINICAL HISTORY: SWELLING OF RT ARM. COMPARISON: None. TECHNIQUE: Real-time sonographic vascular imaging was performed by the strategy planning consultant through the upper extremity utilizing both color-flow and Doppler spectral analysis. Multiple sales representative door to door static images were saved for review. FINDINGS: Internal Jugular Vein (IJV): Normal. Subclavian Vein (SCV): Normal. Axillary Vein : Normal. Cephalic Vein (superficial vein): Normal. Basilic Vein (superficial vein): Normal. Brachial Vein: Normal. Other: None. IMPRESSION: No evidence for deep vein thrombosis. RADIA
== END 2019-04-11 14:09 | disposition home or self-care (01) ==
LOC: DI 14:08
PROVIDERS: ATTEND Nurse Practitioner Gerontology
DX: M79.89 Other specified soft tissue disorders (principal)

== ENCOUNTER 2020-01-24 03:20 | Outpatient (CLI) | payer MEDICAID | END 2020-01-24 03:21 | disposition critical access hospital (66) | LOC: EMS 03:20 | PROVIDERS: ATTEND Surgery | DX: R07.9 Chest pain, unspecified (principal) | CPT/HCPCS: A0425; A0427; A0999 ==

== ENCOUNTER 2020-01-24 03:40 | Emergency (ER) | payer MEDICAID ==
--- NOTE | 2020-01-24 03:36 | ED Physician Documentation ---
History of Present Illness - Stated complaint Stated Complaint: CP - History obtained from History obtained from: Patient - Additonal information Additional information: Patient is a 54-year-old male who was drinking alcohol tonight and started to feel chest pain EMS gave him aspirin and nitro and brought him to the emergency department. Patient also reports a cough for the last 3 or 4 days. Denies any syncope or fevers denies any history of pulmonary embolism or DVT. Review of Systems Constitutional: reports: Reviewed and negative Eyes: reports: Reviewed and negative Ears: reports: Reviewed and negative Nose: reports: Reviewed and negative Throat: reports: Reviewed and negative Cardiac: reports: Chest pain / pressure Respiratory: reports: Reviewed and negative GI: reports: Reviewed and negative : reports: Reviewed and negative Skin: reports: Reviewed and negative Musculoskeletal: reports: Reviewed and negative Neurologic: reports: Reviewed and negative Psychiatric: reports: Reviewed and negative Endocrine: reports: Reviewed and negative Immunocompromised: reports: Reviewed and negative PD PAST MEDICAL HISTORY - Present Medications Home Medications: Ambulatory Orders Medication Instructions Recorded Confirmed Simvastatin 40 mg PO DAILY 06/18/14 01/24/20 hydroCHLOROthiazide [Hydrodiuril] 25 mg PO DAILY #30 tablet 09/03/18 01/24/20 - Allergies Allergies/Adverse Reactions: Allergies Allergy/AdvReac Type Severity Reaction Status Date / Time acetaminophen [From Vicodin] Allergy Hives Verified 01/24/20 04:14 hydrocodone bitartrate * Allergy Hives Verified 01/24/20 04:14 [From Vicodin] lisinopril Allergy Rash Verified 01/24/20 04:14 shellfish derived Allergy Unknown Verified 01/24/20 04:14 PD ED PE NORMAL - Vitals Vital signs reviewed: Yes - General General: Alert and oriented X 3, No acute distress, Well developed/nourished, Other (Smells of alcohol) - HEENT HEENT: Atraumatic, PERRL, Moist mucous membranes, Dentition benign - Neck Neck: Supple, no meningeal sign, No adenopathy, No JVD - Cardiac Cardiac: RRR, No murmur, Strong equal pulses - Respiratory Respiratory: No respiratory distress, Clear bilaterally - Abdomen Abdomen: Normal bowel sounds, Soft, Non tender, Non distended, No organomegaly, Other (No midline abdominal pulsatile mass) - Male Male : Deferred - Rectal Rectal: Deferred - Back Back: No CVA TTP, No spinal TTP - Derm Derm: Normal color, Warm and dry, No rash - Extremities Extremities: No deformity, No tenderness to palpate, Normal ROM s pain, No edema, No calf tenderness / cord - Neuro Neuro: Alert and oriented X 3, readiness paraprofessional 2-12 intact, No motor deficit, No sensory deficit, Normal speech, Other (Intoxicated) - Psych Psych: Normal mood, Normal affect, Other (Intoxicated) Results - Vitals Vitals: Vital Signs - 24 hr 01/24/20 01/24/20 01/24/20 03:46 03:55 04:17 Temperature 36.3 C L Heart Rate 80 76 75 Respiratory 18 20 14 Rate Blood Pressure 155/89 H 140/84 H 140/84 H Blood Pressure 155/89 H [Left] Blood Pressure 140/84 H [Right] O2 Saturation 98 98 97 01/24/20 01/24/20 05:40 05:57 Temperature Heart Rate 75 80 Respiratory 19 20 Rate Blood Pressure 149/93 H 146/93 H Blood Pressure [Left] Blood Pressure [Right] O2 Saturation 68 L 93 Oxygen O2 Source Room air - EKG (time done) 03:47 Rate: Other (no stemi) - Labs Labs: Laboratory Tests 01/24/20 01/24/20 01/24/20 03:55 03:55 03:55 WBC 6.4 RBC 4.28 L Hgb 13.8 L Hct 40.5 L MCV 94.6 H MCH 32.2 H MCHC 34.1 RDW 14.2 Plt Count 217 MPV 10.3 Neut # (Auto) 3.5 Lymph # (Auto) 2.0 [place] # (Auto) 0.5 Eos # (Auto) 0.3 Baso # (Auto) 0.1 Absolute Nucleated RBC 0.00 Nucleated RBC % 0.0 PT 12.3 INR 1.1 APTT 28.2 Sodium 139 Potassium 3.4 L Chloride 103 Carbon Dioxide 17 L Anion Gap 19.0 H BUN 7 Creatinine 0.7 Estimated GFR (MDRD) 118 Glucose 111 H Calcium 9.0 Total Bilirubin 0.5 AST 127 H ALT 107 H Alkaline Phosphatase 73 Total Creatine Kinase 106 Troponin I High Sens B-Natriuretic Peptide Total Protein 8.1 Albumin 4.1 Globulin 4.0 Albumin/Globulin Ratio 1.0 Lipase 40 Ethyl Alcohol 296.5 01/24/20 01/24/20 03:55 03:55 WBC RBC Hgb Hct MCV MCH MCHC RDW Plt Count MPV Neut # (Auto) Lymph # (Auto) [place] # (Auto) Eos # (Auto) Baso # (Auto) Absolute Nucleated RBC Nucleated RBC % PT INR APTT Sodium Potassium Chloride Carbon Dioxide Anion Gap BUN Creatinine Estimated GFR (MDRD) Glucose Calcium Total Bilirubin AST ALT Alkaline Phosphatase Total Creatine Kinase Troponin I High Sens 5.5 B-Natriuretic Peptide 64 Total Protein Albumin Globulin Albumin/Globulin Ratio Lipase Ethyl Alcohol PD MEDICAL DECISION MAKING - ED course Complexity details: reviewed old records, reviewed results, re-evaluated patient, considered differential, d/w patient, other ED course: 54-year-old male has been drinking alcohol tonight presents with chest pain. Initial EKG shows no STEMI.Chest x-ray is negative, troponins negative alcohol level is elevated. 05:50 Patient is clinically sober at this time he is clear speech and a steady gait he has a sober family member here to take him home. Departure - Departure Disposition: 01 Home, Self Care Clinical Impression: Chest pain Qualifiers: Chest pain type: unspecified Qualified Code(s): R07.9 - Chest pain, unspecified Alcohol intoxication Qualifiers: Complication of substance-induced condition: with unspecified complication Qualified Code(s): F10.929 - Alcohol use, unspecified with intoxication, unspecified Condition: Stable Instructions: ED Alcohol Intoxication Follow-Up: LICO JOSUE MD [Primary Care Provider] - 01/24/20 Comments: Please decrease your alcohol consumption. Please follow-up with your primary care provider today. Discharge Date/Time: 01/24/20 06:05
[2020-01-24] MEDS ORDERED: SODIUM CHLORIDE 0.9% 1,000 ML IV STA (03:52)
[2020-01-24] MEDS ORDERED: KETOROLAC 30 MG/ML VIAL IVP STA (03:52)
[2020-01-24 04:07] LABS: BASOPHILS # (AUTO) 0.1 10^3/uL (0.0-0.1); BASOPHILS % (AUTO) 1.1 %; EOSINOPHILS # (AUTO) 0.3 10^3/uL (0.0-0.7); EOSINOPHILS % (AUTO) 4.5 %; HGB - HEMOGLOBIN 13.8 g/dL (14.0-18.0); LYMPHOCYTES % (AUTO) 30.7 %; MEAN CORPUSCULAR HEMOGLOBIN 32.2 pg (27.0-31.0); MEAN CORPUSCULAR HGB CONC 34.1 g/dL (32.0-36.0); MEAN CORPUSCULAR VOLUME 94.6 fL (80.0-94.0); MEAN PLATELET VOLUME 10.3 fL (7.4-11.4); MONOCYTES # (AUTO) 0.5 10^3/uL (0.0-1.0); MONOCYTES % (AUTO) 8.3 %; NEUTROPHILS # (AUTO) 3.5 10^3/uL (1.5-6.6); NEUTROPHILS % (AUTO) 54.8 %; PLT - PLATELET COUNT 217 10^3/uL (130-450); RED BLOOD COUNT 4.28 10^6/uL (4.70-6.10); RED CELL DISTRIBUTION WIDTH 14.2 % (12.0-15.0); WHITE BLOOD COUNT 6.4 x10^3/uL (4.8-10.8)
[2020-01-24 04:11] LABS: INR 1.1 (0.8-1.2); PT - PROTHROMBIN TIME 12.3 secs (9.9-12.6)
[2020-01-24 04:18] LABS: PARTIAL THROMBOPLASTIN TIME 28.2 secs (24.9-33.3)
[2020-01-24 04:20] LABS: ALBUMIN 4.1 g/dL (3.2-5.5); BILIRUBIN,TOTAL 0.5 mg/dL (0.2-1.0); CREATININE 0.7 mg/dL (0.6-1.2); TOTAL PROTEIN 8.1 g/dL (6.7-8.2)
[2020-01-24 05:58] VITALS: BP 146/93
--- NOTE | 2020-01-24 09:02 | XRAY Report ---
PROCEDURE: Chest 1 View X-Ray INDICATIONS: cp/sob TECHNIQUE: One view of the chest was acquired. COMPARISON: Rib x-ray 09/03/2018 FINDINGS: Surgical changes and devices: None. Lungs and pleura: No pleural effusions or pneumothorax. Lungs are clear. Mediastinum: Mediastinal contours appear normal. Heart size is enlarged. Bones and chest wall: No suspicious bony lesions. Overlying soft tissues appear unremarkable. IMPRESSION: No acute pulmonary process. The above findings are concordant with preliminary report. Reviewed by: Yodit Ford MD on 01/24/2020 9:01 AM PDT Approved by: Yodit Ford MD on 01/24/2020 9:01 AM PDT Station ID: [id number]
== END 2020-01-24 06:05 | disposition home or self-care (01) ==
LOC: EDUNIT# → ED 03:40
DX: R07.9 Chest pain, unspecified (principal); F10.129 Alcohol abuse with intoxication, unspecified
CPT/HCPCS: 36415; 71045; 80053; 80320; 82550; 83690; 83880; 84484; 85025; 85610; 85730; 93005; 96361; 96374; 99284

== ENCOUNTER 2020-08-22 08:00 | Outpatient (CLI) | payer MEDICAID ==
[2020-08-22 18:02] LABS: BASOPHILS # (AUTO) 0.1 10^3/uL (0.0-0.1); BASOPHILS % (AUTO) 0.6 %; EOSINOPHILS # (AUTO) 0.2 10^3/uL (0.0-0.7); EOSINOPHILS % (AUTO) 2.3 %; HCT - HEMATOCRIT 42.9 % (42.0-52.0); HGB - HEMOGLOBIN 14.1 g/dL (14.0-18.0); LYMPHOCYTES # (AUTO) 1.6 10^3/uL (1.5-3.5); LYMPHOCYTES % (AUTO) 15.3 %; MEAN CORPUSCULAR HGB CONC 32.9 g/dL (32.0-36.0); MEAN CORPUSCULAR VOLUME 94.3 fL (80.0-94.0); MONOCYTES # (AUTO) 0.6 10^3/uL (0.0-1.0); MONOCYTES % (AUTO) 6.2 %; NEUTROPHILS # (AUTO) 7.6 10^3/uL (1.5-6.6); PLT - PLATELET COUNT 338 10^3/uL (130-450); RED BLOOD COUNT 4.55 10^6/uL (4.70-6.10); RED CELL DISTRIBUTION WIDTH 13.2 % (12.0-15.0); WHITE BLOOD COUNT 10.2 x10^3/uL (4.8-10.8)
[2020-08-22 18:15] LABS: ALBUMIN 4.2 g/dL (3.2-5.5); ALKALINE PHOSPHATASE 81 IU/L (42-121); ALT ALANINE AMINOTRANSFERASE 43 IU/L (10-60); AST ASPARTATE AMINOTRANSFERASE 35 IU/L (10-42); BILIRUBIN,TOTAL 1.1 mg/dL (0.2-1.0); BUN - BLOOD UREA NITROGEN 9 mg/dL (6-20); CALCIUM 9.4 mg/dL (8.5-10.3); CARBON DIOXIDE - CO2 24 mmol/L (21-32); CHLORIDE 97 mmol/L (101-111); CHOL/HDL RATIO 5.1 (<5.0); CHOLESTEROL 203 mg/dL; CREATININE 0.6 mg/dL (0.6-1.2); GFR - MDRD 140 (>89); GLUCOSE 108 mg/dL (70-100); HDL CHOLESTEROL 40 mg/dL; POTASSIUM 3.8 mmol/L (3.5-5.0); SODIUM 135 mmol/L (135-145); TOTAL PROTEIN 8.6 g/dL (6.7-8.2); TRIGLYCERIDES 848 mg/dL; URIC ACID 8.7 mg/dL (2.6-7.2)
[2020-08-22 18:28] LABS: THYROID STIMULATING HORMONE 5.64 uIU/mL (0.34-5.60)
[2020-08-22 19:29] LABS: LDL CHOLESTEROL,DIRECT 63 mg/dL; LDLD/HDL RATIO 1.6 (<3.6)
[2020-08-22 19:42] LABS: FREE T4 (FREE THYROXINE) 0.71 ng/dL (0.58-1.64)
== END 2020-08-22 23:59 | disposition home or self-care (01) ==
LOC: LAB.WCP 08:00
PROVIDERS: ATTEND Internal Medicine
DX: I10 Essential (primary) hypertension (principal); E78.5 Hyperlipidemia, unspecified; Z12.5 Encounter for screening for malignant neoplasm of prostate; M10.9 Gout, unspecified
CPT/HCPCS: 36415; 80053; 80061; 83721; 84153; 84439; 84443; 84550; 85025

== ENCOUNTER 2020-09-12 19:32 | Outpatient (CLI) | payer MEDICAID | END 2020-09-12 19:33 | disposition EMS.NT | LOC: EMS 19:32 | DX: R06.00 Dyspnea, unspecified (principal) ==

== ENCOUNTER 2021-03-18 20:07 | Outpatient (CLI) | payer MEDICAID | END 2021-03-18 20:08 | disposition critical access hospital (66) | LOC: EMS 20:07 | DX: R22.31 Localized swelling, mass and lump, right upper limb (principal) | CPT/HCPCS: A0425; A0428 ==

== ENCOUNTER 2021-03-18 20:29 | Emergency (ER) | payer MEDICAID ==
--- NOTE | 2021-03-18 21:25 | ED Physician Documentation ---
History of Present Illness - Stated complaint Stated Complaint: SWOLLEN HANDS - Chief complaint Chief Complaint: Trauma Ext - History obtained from History obtained from: Patient - Additonal information Additional information: 55-year-old man with history of gout, high blood pressure, hyperlipidemia, resents with right hand pain progressively worsening since this morning. Patient states that it started in the wrist and is radiating to the dorsum of the hand and proximal forearm, worse with range of motion, aching, constant, severe, a/w slight pruritus and also associated with swelling but no clear erythema. 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 He is right hand dominant. patient does not endorse any bites, exposure, injury, however he did fall off a ladder a couple years ago and injured the right hand without any need for surgery. Endorses alcohol intake (beer x2) to dull the pain. Up-to-date on tetanus. Denies fevers, strea angélica redness. Review of Systems Constitutional: denies: Fever Musculoskeletal: reports: Extremity pain, Joint pain, Extremity swelling Neurologic: denies: Focal weakness, Numbness PD PAST MEDICAL HISTORY - Past Medical History Past Medical History: Yes Cardiovascular: Hypertension, High cholesterol Musculoskeletal: Gout - Past Surgical History Past Surgical History: No - Present Medications Home Medications: Ambulatory Orders Medication Instructions Recorded Confirmed Simvastatin 40 mg PO DAILY 06/18/14 01/24/20 hydroCHLOROthiazide [Hydrodiuril] 25 mg PO DAILY #30 tablet 09/03/18 01/24/20 Ketorolac [Toradol] 10 mg PO Q6H PRN #30 tablet 03/18/21 predniSONE [Prednisone 21-TAB dose 60 mg PO QDAC 6 Days #21 tab 03/18/21 pack] - Allergies Allergies/Adverse Reactions: Allergies Allergy/AdvReac Type Severity Reaction Status Date / Time acetaminophen [From Vicodin] Allergy Hives Verified 03/18/21 20:35 hydrocodone bitartrate * Allergy Hives Verified 03/18/21 20:35 [From Vicodin] lisinopril Allergy Rash Verified 03/18/21 20:35 shellfish derived Allergy Unknown Verified 03/18/21 20:35 - Social History Does the pt smoke?: No Smoking Status: Never smoker Does the pt drink ETOH?: Yes Does the pt have substance abuse?: No - Immunizations Immunizations are current?: Yes Immunizations: TDAP >10years/unknown - POLST Patient has POLST: No PD ED PE NORMAL - Vitals Vital signs reviewed: Yes - General General: Alert and oriented X 3, No acute distress, Well developed/nourished - HEENT HEENT: Atraumatic, PERRL, EOMI - Derm Derm: Normal color, Warm and dry, Other (swelling to dorsum of R hand, worst over the wrist joint. both hands with slight erythema, but right hand is not more notable than left.) - Extremities Extremities: Other (tender with ROM of R wrist. 2+ radial pulses. normal sensation and cap refill) - Neuro Neuro: Alert and oriented X 3, No motor deficit, No sensory deficit Results - Vitals Vitals: Vital Signs - 24 hr 03/18/21 03/18/21 03/18/21 20:36 20:41 21:35 Temperature 37.1 C 37.1 C 37.0 C Heart Rate 88 88 89 Respiratory 18 18 18 Rate Blood Pressure 192/94 H 192/94 H 148/81 H O2 Saturation 98 98 97 Oxygen O2 Source Room air PD MEDICAL DECISION MAKING - ED course ED course: 55-year-old man with history of gout presents with right wrist pain gradual in onset upon waking this morning. Patient appears to Be experiencing gout flare versus allergic reaction versus cellulitis. Shared decision made to Treat for Possible gout flare and to monitor carefully over the next 24 to 48 hours. Strict return precautions given. Patient will follow up with his primary doctor in 48 hours or he will go to urgent care or come back here if unable to get in right away. Departure - Departure Disposition: 01 Home, Self Care Clinical Impression: Wrist pain, Hand swelling Condition: Good Instructions: ED RICE Prescriptions: predniSONE [Prednisone 21-TAB dose pack] 60 mg PO QDAC 6 Days #21 tab Ketorolac [Toradol] 10 mg PO Q6H PRN #30 tablet PRN Reason: Pain Comments: You were seen in the emergency department for swelling, itching, and pain to the right wrist, hand and forearm area. Please take this steroid course that I have prescribed and make sure that you follow-up with your doctor or with walk in clinic or urgent care within 48 hours for a recheck of the hand. Please return to the emergency department right away if you develop fevers, if the redness worsens, or if you see streaking redness going up the arm. You also return if you have any other new or worsening symptoms or other concerns. Discharge Date/Time: 03/18/21 21:40
[2021-03-18] MEDS: diphenhydrAMINE 25 MG CAPSULE PO STA (21:33)
[2021-03-18] MEDS: KETOROLAC 30 MG/ML VIAL IM STA (21:33)
[2021-03-18] MEDS: predniSONE 20 MG TABLET PO STA (21:34)
[2021-03-18 21:36] VITALS: BP 148/81
== END 2021-03-18 21:40 | disposition home or self-care (01) ==
LOC: EDUNIT# → ED 20:29
DX: M79.601 Pain in right arm (principal); R22.31 Localized swelling, mass and lump, right upper limb; I10 Essential (primary) hypertension
CPT/HCPCS: 96372; 99283; A9270; J7512

== ENCOUNTER 2021-11-03 10:55 | Outpatient (CLI) | payer MEDICAID | END 2021-11-03 10:56 | disposition EMS.NT | LOC: EMS 10:55 | DX: R07.89 Other chest pain (principal); W01.0XXA Fall on same level from slipping, tripping and stumbling without subsequent striking against object, initial encounter; Y92.008 Other place in unspecified non-institutional (private) residence as the place of occurrence of the external cause; Z72.89 Other problems related to lifestyle ==

== ENCOUNTER 2021-11-15 21:11 | Outpatient (CLI) | payer MEDICAID | END 2021-11-15 21:12 | disposition EMS.NT | LOC: EMS 21:11 | DX: Z03.89 Encounter for observation for other suspected diseases and conditions ruled out (principal) ==

== ENCOUNTER 2022-01-29 07:41 | Outpatient (CLI) | payer MEDICAID ==
--- NOTE | 2022-01-29 11:01 | XRAY Report ---
PROCEDURE: Knee 3 View BILAT INDICATIONS: CHRONIC BILATERAL KNEE PX TECHNIQUE: 3 views of both knees were acquired. COMPARISON: Right knee radiographs 08/12/2017. FINDINGS: Bones: No fractures or dislocations. No suspicious bony lesions. Mild medial and minimal patellofem oral compartment narrowing present bilaterally. Soft tissues: No joint effusion. No suspicious soft tissue calcifications. IMPRESSION: Mild degenerative changes of both knees. Reviewed by: Ramez Banks MD on 01/29/2022 11:00 AM PDT Approved by: Ramez Banks MD on 01/29/2022 11:00 AM PDT Station ID: [id number]
--- NOTE | 2022-01-29 11:55 | XRAY Report ---
PROCEDURE: Cervical Spine 2 View INDICATIONS: CHRONIC NECK PX TECHNIQUE: 4 views of the cervical spine were acquired. COMPARISON: CT cervical spine 04/11/2016 FINDINGS: Bones: No acute fractures or dislocations to the C7 level. The lateral masses of C1 appear intact o n the odontoid view. No suspicious bony lesions. There is mild 2mm grade 1 anterolisthesis of C4 on C5. Mild multilevel disc space narrowing and degenerative endplate changes are seen. Facet and uncov ertebral joint hypertrophy are seen throughout the cervical spine. Soft tissues: No prevertebral soft tissue swelling. IMPRESSION: 1.Mild grade 1 anterolisthesis of C4 on C5. 2.Mild to moderate multilevel spondylosis. Reviewed by: Ramez Rebolledo MD on 01/29/2022 11:53 AM PDT Approved by: Ramez Rebolledo MD on 01/29/2022 11:53 AM PDT Station ID: [id number]
--- NOTE | 2022-01-29 17:57 | XRAY Report ---
PROCEDURE: Lumbar Spine 2 View INDICATIONS: CHRONIC LOW BACK PX TECHNIQUE: 3 views of the lumbar spine were acquired. COMPARISON: None. FINDINGS: Bones: 5 [id number] vertebrae are present. There is normal bony alignment. No vertebral body compression fractures. No suspicious bony lesions. Degenerative changes including intervertebral di sc space narrowing, endplate sclerosis and facet sclerosis are noted. Soft tissues: Overlying bowel gas pattern is normal. No suspicious soft tissue calcifications. IMPRESSION: Degenerative change. No compression deformities. Reviewed by: Elizabeth Walsh MD on 01/29/2022 5:56 PM PDT Approved by: Elizabeth Walsh MD on 01/29/2022 5:56 PM PDT Station ID: [id number]
== END 2022-01-29 07:42 | disposition home or self-care (01) ==
LOC: DI.N 07:41
PROVIDERS: ATTEND Internal Medicine
DX: M43.12 Spondylolisthesis, cervical region (principal); M47.812 Spondylosis without myelopathy or radiculopathy, cervical region; M47.816 Spondylosis without myelopathy or radiculopathy, lumbar region; M17.0 Bilateral primary osteoarthritis of knee; I10 Essential (primary) hypertension; E78.5 Hyperlipidemia, unspecified; E88.81 Metabolic syndrome and other insulin resistance; Z12.5 Encounter for screening for malignant neoplasm of prostate; M10.9 Gout, unspecified; M25.50 Pain in unspecified joint
CPT/HCPCS: 36415; 80053; 80061; 83036; 83516; 83721; 84153; 84443; 84550; 85025; 85651; 86140; 86200; 86225; 86235; 86430

== ENCOUNTER 2022-01-29 07:53 | Outpatient (CLI) | payer MEDICAID ==
[2022-01-29 12:22] LABS: BASOPHILS # (AUTO) 0.1 10^3/uL (0.0-0.1); BASOPHILS % (AUTO) 0.7 %; EOSINOPHILS # (AUTO) 0.3 10^3/uL (0.0-0.7); EOSINOPHILS % (AUTO) 3.4 %; HCT - HEMATOCRIT 45.8 % (42.0-52.0); HGB - HEMOGLOBIN 15.1 g/dL (14.0-18.0); LYMPHOCYTES # (AUTO) 2.2 10^3/uL (1.5-3.5); LYMPHOCYTES % (AUTO) 26.3 %; MEAN CORPUSCULAR HEMOGLOBIN 29.6 pg (27.0-31.0); MEAN CORPUSCULAR VOLUME 89.8 fL (80.0-94.0); MEAN PLATELET VOLUME 10.7 fL (7.4-11.4); MONOCYTES # (AUTO) 0.6 10^3/uL (0.0-1.0); MONOCYTES % (AUTO) 7.5 %; NEUTROPHILS # (AUTO) 5.1 10^3/uL (1.5-6.6); NEUTROPHILS % (AUTO) 61.9 %; PLT - PLATELET COUNT 279 10^3/uL (130-450); RED CELL DISTRIBUTION WIDTH 13.2 % (12.0-15.0); WHITE BLOOD COUNT 8.2 x10^3/uL (4.8-10.8)
[2022-01-29 13:04] LABS: RHEUMATOID FACTOR NEGATIVE (Negative)
[2022-01-29 13:25] LABS: ALBUMIN 4.3 g/dL (3.2-5.5); ALBUMIN/GLOBULIN RATIO 1.1 (1.0-2.2); ALKALINE PHOSPHATASE 65 IU/L (42-121); ALT ALANINE AMINOTRANSFERASE 30 IU/L (10-60); AST ASPARTATE AMINOTRANSFERASE 26 IU/L (10-42); BILIRUBIN,TOTAL 0.9 mg/dL (0.2-1.0); BUN - BLOOD UREA NITROGEN 10 mg/dL (6-20); CALCIUM 9.4 mg/dL (8.5-10.3); CARBON DIOXIDE - CO2 28 mmol/L (21-32); CHLORIDE 102 mmol/L (101-111); CHOL/HDL RATIO 3.7 (<5.0); CHOLESTEROL 115 mg/dL; CREATININE 0.8 mg/dL (0.6-1.2); GFR - MDRD 100 (>89); GLUCOSE 94 mg/dL (70-100); HDL CHOLESTEROL 31 mg/dL; LDL CHOLESTEROL,CALCULATED 63 mg/dL; SODIUM 137 mmol/L (135-145); TOTAL PROTEIN 8.1 g/dL (6.7-8.2); TRIGLYCERIDES 103 mg/dL; URIC ACID 9.3 mg/dL (2.6-7.2); VLDL CHOLESTEROL 21 mg/dL
[2022-01-29 13:48] LABS: CRP - C-REACTIVE PROTEIN < 1.0 mg/dL (0-1.0)
[2022-01-29 13:59] LABS: THYROID STIMULATING HORMONE 3.43 uIU/mL (0.34-5.60)
[2022-01-29 20:27] LABS: ESTIMATED AVERAGE GLUCOSE 103 mg/dL (70-100); HEMOGLOBIN A1c% 5.2 % (4.27-6.07)
[2022-01-30 17:08] LABS: ANTI-DNA (DS) AB QN <1 IU/mL (0-9); CENTROMERE B ANTIBODIES <0.2 AI (0.0-0.9); CHROMATIN ANTIBODIES <0.2 AI (0.0-0.9); JO-1 AB <0.2 AI (0.0-0.9); RIBOSOMAL P ANTIBODIES <0.2 AI (0.0-0.9); RNP ANTIBODIES <0.2 AI (0.0-0.9); SCLERODERMA-70 ANTIBODIES <0.2 AI (0.0-0.9); SJOGREN'S ANTI-SS-A <0.2 AI (0.0-0.9); SJOGREN'S ANTI-SS-B <0.2 AI (0.0-0.9); SMITH ANTIBODIES <0.2 AI (0.0-0.9); SMITH/RNP ANTIBODIES <0.2 AI (0.0-0.9)
[2022-01-31 21:07] LABS: CYCLIC CITRULLINATED PEP IGG/A 6 units (0-19)
== END 2022-01-29 07:54 | disposition home or self-care (01) ==
LOC: LAB.N 07:53
PROVIDERS: ATTEND Internal Medicine
DX: I10 Essential (primary) hypertension (principal); E78.5 Hyperlipidemia, unspecified; E88.81 Metabolic syndrome and other insulin resistance; Z12.5 Encounter for screening for malignant neoplasm of prostate; M10.9 Gout, unspecified; M25.50 Pain in unspecified joint
CPT/HCPCS: 36415; 80053; 80061; 83036; 83721; 84153; 84443; 84550; 85025; 85651; 86140; 86200; 86225; 86235; 86430

== ENCOUNTER 2022-11-04 00:24 | Emergency (ER) | payer MEDICAID ==
--- NOTE | 2022-11-04 01:22 | ED Physician Documentation ---
PD HPI Fall - Stated complaint Stated Complaint: GLF, ETOH, WEED - Chief complaint Chief Complaint: Trauma Hd/Nk - History obtained from History obtained from: EMS - Additional information Additional information: Brought in by ambulance. Patient is unable to provide any HPI due to intoxication, severely slurred speech. HPI is from EMS. EMS says that patient had a fall tonight for which another joey kennedyte called 911. The patient was found on the kitchen floor by EMS, awake, alert, but with slurred speech and answers are difficult to understand. Others on scene told EMS that the patient had been drinking alcohol all day and also smoked marijuana at some point this evening. EMS says that others on scene were not providing particular specific nor helpful information. On route, the patient has been refusing a c-collar, is tolerating towel wrapped around neck for purposes of trying to keep cervical spine immobilized. On my HPI, the patient is very drowsy, has very slurred speech. Nearly all of his answers are incomprehensible to me. Review of Systems Unable to obtain: AMS, Intoxicated PD PAST MEDICAL HISTORY - Past Medical History Cardiovascular: Hypertension, High cholesterol Musculoskeletal: Gout - Past Surgical History Past Surgical History: No - Present Medications Home Medications: Ambulatory Orders Medication Instructions Recorded Confirmed Simvastatin 40 mg PO DAILY 06/18/14 11/04/22 hydroCHLOROthiazide [Hydrodiuril] 25 mg PO DAILY #30 tablet 09/03/18 11/04/22 Ketorolac [Toradol] 10 mg PO Q6H PRN #30 tablet 03/18/21 11/04/22 predniSONE [Prednisone 21-TAB dose 60 mg PO QDAC 6 Days #21 tab 03/18/21 11/04/22 pack] - Allergies Allergies/Adverse Reactions: Allergies Allergy/AdvReac Type Severity Reaction Status Date / Time acetaminophen [From Vicodin] Allergy Hives Verified 11/04/22 02:07 hydrocodone bitartrate * Allergy Hives Verified 11/04/22 02:07 [From Vicodin] lisinopril Allergy Rash Verified 11/04/22 02:07 shellfish derived Allergy Unknown Verified 11/04/22 02:07 - Social History Does the pt smoke?: No Smoking Status: Never smoker Does the pt drink ETOH?: Yes Does the pt have substance abuse?: No - Immunizations Immunizations are current?: Yes Immunizations: TDAP >10years/unknown - POLST Patient has POLST: No PD ED PE NORMAL - Vitals Vital signs reviewed: Yes - General General: No acute distress, Other (drowsy, wakens to verbal but often only when combined with tactile. falls asleep rapidly and repeatedly. ) - HEENT HEENT: PERRL - Cardiac Cardiac: RRR, No murmur - Respiratory Respiratory: No respiratory distress, Clear bilaterally - Abdomen Abdomen: Soft, Non distended - Extremities Extremities: No deformity, No tenderness to palpate PD ED PE EXPANDED - HEENT HEENT Visual: 1 - laceration (2.5 cm length) Results - Vitals Vitals: Vital Signs - 24 hr 11/04/22 11/04/22 11/04/22 00:34 01:20 03:00 Temperature 36.6 C 97.5 C H Heart Rate 72 74 87 Respiratory 16 16 18 Rate Blood Pressure 155/91 H 138/94 H 139/87 H O2 Saturation 94 96 95 If not protocol : Oxygen Flow, liters/minute 11/04/22 11/04/22 11/04/22 04:00 04:20 05:50 Temperature 36.6 C 36.6 C 37.2 C Heart Rate 69 81 79 Respiratory 15 12 22 Rate Blood Pressure 123/76 123/76 141/69 H O2 Saturation 94 88 L 100 If not protocol 2 : Oxygen Flow, liters/minute 11/04/22 11/04/22 11/04/22 06:02 07:00 07:08 Temperature Heart Rate 102 H 67 Respiratory 20 16 15 Rate Blood Pressure 113/64 120/76 O2 Saturation 96 72 L 95 If not protocol : Oxygen Flow, liters/minute 11/04/22 07:42 Temperature 36.6 C Heart Rate 77 Respiratory 16 Rate Blood Pressure 130/74 O2 Saturation 92 If not protocol 2 : Oxygen Flow, liters/minute Oxygen O2 Source Nasal cannula Oxygen Flow Rate 2 - Labs Labs: Laboratory Tests 11/04/22 11/04/22 11/04/22 01:55 01:55 02:00 WBC 7.7 RBC 4.32 L Hgb 13.7 L Hct 40.9 L MCV 94.7 H MCH 31.7 H MCHC 33.5 RDW 12.8 Plt Count 234 MPV 9.5 Neut # (Auto) 4.0 Lymph # (Auto) 2.6 [place] # (Auto) 0.6 Eos # (Auto) 0.5 Baso # (Auto) 0.1 Absolute Nucleated RBC 0.00 Nucleated RBC % 0.0 Sodium 134 L Potassium 3.8 Chloride 103 Carbon Dioxide 22 Anion Gap 9.0 BUN 9 Creatinine 0.6 Estimated GFR (MDRD) 139 Glucose 99 Calcium 8.2 L Total Bilirubin 0.3 AST 52 H ALT 65 H Alkaline Phosphatase 51 Total Protein 8.3 H Albumin 3.9 Globulin 4.4 H Albumin/Globulin Ratio 0.9 L Lipase 35 Urine Color YELLOW Urine Clarity CLEAR Urine pH 5.5 Ur Specific [place] 1.010 Urine Protein NEGATIVE Urine Glucose (UA) NEGATIVE Urine Ketones NEGATIVE Urine Occult Blood NEGATIVE Urine Nitrite NEGATIVE Urine Bilirubin NEGATIVE Urine Urobilinogen 0.2 (NORMAL) Ur Leukocyte Esterase NEGATIVE Ur Microscopic Review NOT INDICATED Urine Culture Comments NOT INDICATED Urine Opiates Screen NEGATIVE Ur Oxycodone Screen NEGATIVE Urine Methadone Screen NEGATIVE Ur Propoxyphene Screen NEGATIVE Ur Barbiturates Screen NEGATIVE Ur Tricyclics Screen NEGATIVE Ur Phencyclidine Scrn NEGATIVE Ur Amphetamine Screen NEGATIVE U Methamphetamines Scrn NEGATIVE U Benzodiazepines Scrn NEGATIVE Urine Cocaine Screen NEGATIVE U Cannabinoids Screen NEGATIVE Ethyl Alcohol 404.6 - Rads (name of study) CTH Relevant Findings:: Prelim report reviewed, See rad report CT cervical spine Relevant Findings:: Prelim report reviewed, See rad report CT chest with IV contrast Relevant Findings:: Prelim report reviewed, See rad report CT A/P with IV contrast Relevant Findings:: Prelim report reviewed, See rad report Procedures - Laceration (location) Face right Length in cm: 2.5 Wound type: Linear Neurovascular status: Vascular intact Tendon involvement: Tendon intact Anesthesia: Lidocaine 1% Wound preparation: Hibiclens, Irrigated copiously NS, Wound explored Skin layer closure: Nylon, Interrupted (one simple interrupted suture at medial- most aspect), Running (four throws running suture), Size #-0 - enter number (5- 0) Other: Patient tolerated well, No complications, Neurovascular intact PD Medical Decision Making - ED course Complexity details: reviewed results, re-evaluated patient, considered differential ED course: Patient's serum ethanol level is 404.6. Otherwise no concerning nor diagnostic findings on blood tests, UDS (negative for drugs tested including cannabinoids). Shortly after ED arrival, patient had unwitnessed fall , found in his room by ED RN on floor, awake and crawling around, no change in mentation. A right supraor bital laceration is now present (was not there when he first arrived to ED). Arteaga-scan undertaken (CTH, CT cervical spine, CT chest with IV contrast, and CT A/P with IV contrast), and there are no concerning findings on these studies. Note that these studies were performed after patient fell in the ED. Patient gradually became more awake and alert, also becoming loud and verbally abusive with staff, using expletives frequently. Four point restraints were considered, as patient was again trying to get up off stretcher. However, as soon as he saw the restraints, he lay back down on the stretcher, albeit still yelling and angry. I explained to him that we will not have to use the restraints if he can be cooperative until tests are completed and that he is sober enough to consider discharging him. He appeared to be slightly tremulous and I offered to give lorazepam IV to help calm him down and help with what could be early alcohol withdrawal, and he indicates to me (verbally) that he would like to have this medication. Care of this patient is turned over to the oncoming ED physician at end of my shift (Dr. Norris); patient can be reevaluated for d/c once he is awake, alerted, oriented adequately, and is able to adequately support himself physically without falling over. Departure - Departure Clinical Impression: Laceration Alcohol intoxication Qualifiers: Complication of substance-induced condition: with delirium Qualified Code(s): F 10.921 - Alcohol use, unspecified with intoxication delirium Condition: Good Instructions: ED Alcohol Intoxication, ED Laceration Facial Sutr Tape Comments: You came into the emergency department because one of your housemates called 911 after you had fallen down at home. Your alcohol level was exceptionally high when we tested it tonight; for a reference point, your alcohol level was FIVE TIMES the legal driving limit. If you are not drinking on a heavy and regular basis (in other words, if you feel that you have an alcohol problem), you should seek help in quitting. Quitting alcoholism one's own can be extremely difficult and potentially very dangerous. One option is the [facility] in [place]. You can contact them at . They will perform an [id number] interview to determine if you would be appropriate for their facility and, if so, they will then give you a time of day to come to the facility for intake. Stitches were placed in the laceration above your right eye. YOU WILL NEED TO FOLLOW UP WITH YOUR PRIMARY CARE PROVIDER IN 7-8 DAYS FOR REMOVAL OF THE STITCHES. The stitches do not dissolve. If you do not have a primary care provider, you can use an urgent care center, or a walk-in medical clinic.
[2022-11-04 01:59] LABS: BASOPHILS # (AUTO) 0.1 10^3/uL (0.0-0.1); BASOPHILS % (AUTO) 0.8 %; EOSINOPHILS # (AUTO) 0.5 10^3/uL (0.0-0.7); HCT - HEMATOCRIT 40.9 % (42.0-52.0); HGB - HEMOGLOBIN 13.7 g/dL (14.0-18.0); LYMPHOCYTES # (AUTO) 2.6 10^3/uL (1.5-3.5); MEAN CORPUSCULAR HEMOGLOBIN 31.7 pg (27.0-31.0); MEAN CORPUSCULAR HGB CONC 33.5 g/dL (32.0-36.0); MEAN CORPUSCULAR VOLUME 94.7 fL (80.0-94.0); MEAN PLATELET VOLUME 9.5 fL (7.4-11.4); MONOCYTES # (AUTO) 0.6 10^3/uL (0.0-1.0); MONOCYTES % (AUTO) 8.3 %; NEUTROPHILS % (AUTO) 51.6 %; PLT - PLATELET COUNT 234 10^3/uL (130-450); RED BLOOD COUNT 4.32 10^6/uL (4.70-6.10); RED CELL DISTRIBUTION WIDTH 12.8 % (12.0-15.0); WHITE BLOOD COUNT 7.7 x10^3/uL (4.8-10.8)
[2022-11-04] MEDS: SODIUM CHLORIDE 0.9% 1,000 ML IV STA (02:00)
[2022-11-04] MEDS: LIDOCAINE 1% 2 ML VIAL SUBQ STA (02:04)
[2022-11-04 02:08] LABS: MUDS CUTOFF CONCENTRATIONS CUTOFF CONC BELOW:
[2022-11-04 02:10] LABS: BILIRUBIN,URINE NEGATIVE (NEGATIVE); GLUCOSE, URINE (UA) NEGATIVE (NEGATIVE); KETONES,URINE (UA) NEGATIVE (NEGATIVE); LEUKOCYTE ESTERASE, URINE NEGATIVE (NEGATIVE); NITRITE,URINE NEGATIVE (NEGATIVE); OCCULT BLOOD,URINE NEGATIVE (NEGATIVE); PH,URINE 5.5 PH (5.0-7.5); PROTEIN,URINE NEGATIVE (NEGATIVE); UROBILINOGEN,URINE 0.2 (NORMAL) E.U./dL (NORMAL)
[2022-11-04 02:12] LABS: ALBUMIN 3.9 g/dL (3.2-5.5); ALBUMIN/GLOBULIN RATIO 0.9 (1.0-2.2); BILIRUBIN,TOTAL 0.3 mg/dL (0.2-1.0); CALCIUM 8.2 mg/dL (8.5-10.3); CREATININE 0.6 mg/dL (0.6-1.2); ETOH - ETHANOL 404.6 mg/dL; POTASSIUM 3.8 mmol/L (3.5-5.0); TOTAL PROTEIN 8.3 g/dL (6.7-8.2)
[2022-11-04 02:20] LABS: AMPHETAMINE SCREEN,URINE NEGATIVE (NEGATIVE); BARBITURATE SCREEN,UR NEGATIVE (NEGATIVE); BENZODIAZEPINES SCREEN, URINE NEGATIVE (NEGATIVE); CLARITY,URINE CLEAR (CLEAR); COCAINE SCREEN URINE NEGATIVE (NEGATIVE); METHADONE SCREEN, URINE NEGATIVE (NEGATIVE); METHAMPHETAMINES SCREEN, URINE NEGATIVE (NEGATIVE); OPIATE SCREEN, URINE NEGATIVE (NEGATIVE); OXYCODONE SCREEN, URINE NEGATIVE (NEGATIVE); PROPOXYPHENE SCREEN, URINE NEGATIVE (NEGATIVE); THC CANNABINOID SCREEN, URINE NEGATIVE (NEGATIVE); TRICYCLIC ANTIDEPRESSANT,URINE NEGATIVE (NEGATIVE)
[2022-11-04] MEDS ORDERED: iohexoL-300 100 ML VIAL ONE (02:29)
[2022-11-04] MEDS: iohexoL-300 100 ML VIAL IVP ONE (03:41)
[2022-11-04] MEDS: LORazepam 2 MG/ML VIAL IVP STA (04:01)
--- NOTE | 2022-11-04 08:32 | CT Report ---
PROCEDURE: ABDOMEN/PELVIS W INDICATIONS: fall, AMS, intoxicated CONTRAST: Omni 300 100ml TECHNIQUE: After the administration of intravenous contrast, 5 mm thick sections acquired from the diaphragms to the symphysis. 5 mm thick coronal and sagittal reformats were acquired. For radiation dose reducti on, the following was used: automated exposure control, adjustment of mA and/or kV according to david ent size. COMPARISON: None FINDINGS: Image quality: Excellent. Lung bases and heart: Unremarkable. Liver: No solid mass. Gallbladder and biliary tree: No radiopaque stones or wall thickening. No biliary dilation. Spleen: No splenomegaly. Pancreas: No pancreatic ductal dilation. Adrenals: No adrenal nodule. Kidneys and ureters: No hydronephrosis. No renal cystic lesion which requires follow up. No solid mas s. Bowel and peritoneum: No bowel distension. No pathologic free fluid. Lymph nodes: No central or retroperitoneal adenopathy. Vessels: No infrarenal aortic aneurysm. PELVIS Reproductive organs: Unremarkable. Bladder: Markedly distended. Pelvic lymph nodes: No pelvic adenopathy by size criteria. Bones: No aggressive osseous abnormality. Other: No significant ventral or inguinal hernia. IMPRESSION: Distended urinary bladder, nonspecific but can indicate urinary retention. No significant discrepancies with the [facility] report. Reviewed by: Joseph Polanco on 11/04/2022 8:31 AM PDT Approved by: Joseph Polanco on 11/04/2022 8:31 AM PDT Station ID: [id number]
--- NOTE | 2022-11-04 08:43 | CT Report ---
PROCEDURE: HEAD WO INDICATIONS: fall x 2 with head lac, AMS, intoxicated TECHNIQUE: Noncontrast 4.5 mm thick angled axial sections acquired from the foramen magnum to the vertex. For r adiation dose reduction, the following was used: automated exposure control, adjustment of mA and/or kV according to patient size. COMPARISON: CT head without, 09/03/2018. FINDINGS: Image quality: Excellent. CSF spaces: Basal cisterns are patent. No extra-axial fluid collections. Ventricles are normal in size and shape. Brain: No midline shift. No intracranial masses or hemorrhage. Steele-white matter interface is norm al. Skull and face: Calvarium and visualized facial bones are intact, without suspicious lesions. Right frontal/periorbital soft tissue contusion. Sinuses: Maxillary mucosal thickening bilaterally. The mastoids are clear. IMPRESSION: 1. No acute intracranial abnormality. 2. Right frontal/periorbital soft tissue contusion. 3. Bilateral maxillary sinus disease. No significant discrepancy with the preliminary interpretation. Reviewed by: Alan Matta MD on 11/04/2022 8:42 AM PDT Approved by: Alan Matta MD on 11/04/2022 8:42 AM PDT Station ID: [id number]
--- NOTE | 2022-11-04 09:06 | CT Report ---
PROCEDURE: CERVICAL SPINE WO INDICATIONS: fall x 2, AMS, intoxicated TECHNIQUE: Noncontrast 3 mm thick sections acquired from the skull base to the T4 level. Sagittal and coronal r eformats were then constructed. For radiation dose reduction, the following was used: automated exp osure control, adjustment of mA and/or kV according to patient size. COMPARISON: X-ray cervical spine, 01/29/2022. CT cervical spine, 04/11/2016. FINDINGS: Image quality: Excellent. Bones: No fractures or dislocations. Mild degenerative disease and moderate bilateral facet arthropa thy in cervical spine. There is moderate atlantoaxial joint degeneration. Visualized superior ribs ar e intact. There is anterior subluxation of the left mandibular condyle at the temporomandibular join t. Soft tissues: Prevertebral soft tissues are normal in thickness. No paravertebral hematomas. No ap ical pneumothoraces. IMPRESSION: 1. No cervical spine fractures. 2. Degenerative changes as described. 3. There is anterior subluxation of the left mandibular condyle. Recommend correlation with findings on physical examination. The result was discussed with Dr. Norris. Findings are concordant with preliminary interpretation provided by [facility]. Reviewed by: Alan Matta MD on 11/04/2022 9:04 AM PDT Approved by: Alan Matta MD on 11/04/2022 9:04 AM PDT Station ID: [id number]
--- NOTE | 2022-11-04 09:18 | CT Report ---
PROCEDURE: CHEST W INDICATIONS: fall x 2 , AMS, intoxicated CONTRAST: Omni 300 100ml TECHNIQUE: After the administration of intravenous contrast, 1 mm axial images were acquired from the pulmonary apices through the posterior costophrenic angles. Axial 5 mm soft tissue kernel reconstructions were performed as well as 8 mm axial MIP and coronal and sagittal 5 mm reformations. For radiation dose reduction, the following was used: automated exposure control, adjustment of mA and/or kV according to patient size. COMPARISON: None. FINDINGS: Image quality: Excellent. Lungs and pleura: No consolidation. No pleural effusions. No pneumothorax. There is a 5 mm nodule in the right lower lobe (series 15 image 212). Mediastinum: Heart size is normal. No pericardial effusion. There is moderate coronary calcification. No large vessel abnormality. There is a 1.3 x 2.8 cm subcarinal lymph node. Chest wall and lower neck: Thyroid is unremarkable. There are multiple subcentimeter axillary lymph n odes. Bones: No aggressive osseous abnormality. Upper Abdomen: Mild hepatic steatosis. Diverticulosis without diverticulitis.. IMPRESSION: 1. No acute traumatic injuries are identified on CT. 2. A mildly enlarged mediastinal lymph node is noted. There are numerous normal-sized axillary lymph nodes bilaterally. The findings are nonspecific. Recommend clinical correlation and imaging follow-up as clinically indicated. 3. A 5 mm nodule in the right lower lobe. Please see enclosed follow-up recommendation. No significant discrepancy with the preliminary interpretation. Fleischner Society criteria for SOLID lung nodule followup. Nodule size (mm)Low-risk patientHigh-risk patient "d4No follow-up neededFollow-up at 12 mo; if no change, no further follow-up >3-5Phjsfs-lm CT at 12 mo; if no change, no further follow-up needed.Initial follow-up CT at 6-12 mo, then 18-24 mo if no change. >6-8Initial follow-up CT at 6-12 mo, then 18-24 mo if no change. Initial follow-up CT at 3-6 mo, then 9-12 mo and 24 mo if no change. >8Follow-up CT at 3, 9, 24 mo. Or PET and/or biopsy.Same as for low-risk pts. Reviewed by: Alan Matta MD on 11/04/2022 9:17 AM PDT Approved by: Alan Matta MD on 11/04/2022 9:17 AM PDT Station ID: [id number]
--- NOTE | 2022-11-04 09:27 | ED Physician Documentation ---
ED Addendum - Addendum Addendum: 11/04/22 09:25 The patient was signed out to me at change of shift, pending improved mental status after presenting to the emergency department drunk and high on marijuana. He had gotten up to one-point and taken a fall, so was sent for CT scan of the head, which was read as unremarkable. However, I received a call from the radiologist over reading, stating that it was possible that there was some anterior subluxation of the left mandible. I did go back and reexamined the patient, who was now awake, and he reported no pain in the mandible and had full range of motion of it. As such, I felt it was unlikely that his mandible was truly subluxed. The patient was able to ambulate to the bathroom and was much more alert and I felt he was stable for discharge home. He had been in the ED for nearly 9 hours and had metabolized significantly since his initial presentation and alcohol level of 400. We have discussed the usual indications for return. Final impression: See original note Disposition: Home in stable and improved condition
[2022-11-04 09:29] VITALS: BP 130/80
== END 2022-11-04 09:24 | disposition home or self-care (01) ==
LOC: EDUNIT# → ED 00:24
DX: S01.81XA Laceration without foreign body of other part of head, initial encounter (principal); W19.XXXA Unspecified fall, initial encounter; Y92.000 Kitchen of unspecified non-institutional (private) residence as the place of occurrence of the external cause; F10.129 Alcohol abuse with intoxication, unspecified; Y90.8 Blood alcohol level of 240 mg/100 ml or more; Z91.81 History of falling; R29.6 Repeated falls
CPT/HCPCS: 12011; 36415; 70450; 71260; 72125; 74177; 80053; 80306; 80320; 81003; 83690; 85025; 96374; 99284; J2060; Q9967; 81001; 87086

== ENCOUNTER 2023-04-11 13:38 | Outpatient (CLI) | payer MEDICAID ==
[2023-04-11 18:09] LABS: BASOPHILS # (AUTO) 0.1 10^3/uL (0.0-0.1); BASOPHILS % (AUTO) 0.8 %; EOSINOPHILS # (AUTO) 0.2 10^3/uL (0.0-0.7); EOSINOPHILS % (AUTO) 3.2 %; HCT - HEMATOCRIT 45.2 % (42.0-52.0); LYMPHOCYTES % (AUTO) 26.5 %; MEAN CORPUSCULAR HEMOGLOBIN 31.2 pg (27.0-31.0); MEAN CORPUSCULAR HGB CONC 33.2 g/dL (32.0-36.0); MEAN PLATELET VOLUME 10.6 fL (7.4-11.4); MONOCYTES # (AUTO) 0.6 10^3/uL (0.0-1.0); MONOCYTES % (AUTO) 8.3 %; NEUTROPHILS # (AUTO) 4.5 10^3/uL (1.5-6.6); NEUTROPHILS % (AUTO) 60.9 %; PLT - PLATELET COUNT 349 10^3/uL (130-450); RED BLOOD COUNT 4.81 10^6/uL (4.70-6.10); RED CELL DISTRIBUTION WIDTH 13.2 % (12.0-15.0); WHITE BLOOD COUNT 7.4 x10^3/uL (4.8-10.8)
[2023-04-11 18:11] LABS: ALBUMIN 4.2 g/dL (3.2-5.5); ALBUMIN/GLOBULIN RATIO 1.2 (1.0-2.2); ALKALINE PHOSPHATASE 60 IU/L (42-121); ALT ALANINE AMINOTRANSFERASE 74 IU/L (10-60); AST ASPARTATE AMINOTRANSFERASE 34 IU/L (10-42); BILIRUBIN,TOTAL 0.4 mg/dL (0.2-1.0); BUN - BLOOD UREA NITROGEN 7 mg/dL (6-20); CALCIUM 9.3 mg/dL (8.5-10.3); CARBON DIOXIDE - CO2 29 mmol/L (21-32); CHLORIDE 105 mmol/L (101-111); CHOL/HDL RATIO 2.7 (<5.0); CHOLESTEROL 76 mg/dL; CREATININE 0.8 mg/dL (0.6-1.3); GFR - MDRD 100 (>89); GLUCOSE 100 mg/dL (74-104); HDL CHOLESTEROL 28 mg/dL; LDL CHOLESTEROL,CALCULATED 24 mg/dL; LDL/HDL RATIO 0.9 (<3.6); POTASSIUM 4.3 mmol/L (3.5-4.5); SODIUM 138 mmol/L (135-145); TOTAL PROTEIN 7.8 g/dL (6.4-8.9); TRIGLYCERIDES 119 mg/dL (48-352); URIC ACID 3.2 mg/dL (4.4-7.6); VLDL CHOLESTEROL 24 mg/dL
[2023-04-11 21:38] LABS: ESTIMATED AVERAGE GLUCOSE 103 mg/dL (70-100); HEMOGLOBIN A1c% 5.2 % (4.27-6.07)
== END 2023-04-11 13:39 | disposition home or self-care (01) ==
LOC: LAB.N 13:38
PROVIDERS: ATTEND Internal Medicine
DX: E78.5 Hyperlipidemia, unspecified (principal); E88.810 Metabolic syndrome; M10.9 Gout, unspecified; Z12.5 Encounter for screening for malignant neoplasm of prostate; I10 Essential (primary) hypertension
CPT/HCPCS: 36415; 80053; 80061; 83036; 83721; 84153; 84550; 85025

== ENCOUNTER 2023-04-26 15:49 | Outpatient (CLI) | payer MEDICAID | END 2023-04-26 15:50 | disposition critical access hospital (66) | LOC: EMS 15:49 | DX: S21.239A Puncture wound without foreign body of unspecified back wall of thorax without penetration into thoracic cavity, initial encounter (principal); Y24.0XXA Airgun discharge, undetermined intent, initial encounter; Y92.019 Unspecified place in single-family (private) house as the place of occurrence of the external cause; F10.90 Alcohol use, unspecified, uncomplicated | CPT/HCPCS: A0425; A0429; A0999 ==

== ENCOUNTER 2023-04-26 16:13 | Emergency (ER) | payer MEDICAID ==
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
[2023-04-26 16:43] LABS: BASOPHILS # (AUTO) 0.1 10^3/uL (0.0-0.1); BASOPHILS % (AUTO) 1.5 %; EOSINOPHILS # (AUTO) 0.2 10^3/uL (0.0-0.7); EOSINOPHILS % (AUTO) 3.4 %; HCT - HEMATOCRIT 42.4 % (42.0-52.0); HGB - HEMOGLOBIN 14.4 g/dL (14.0-18.0); LYMPHOCYTES # (AUTO) 2.5 10^3/uL (1.5-3.5); LYMPHOCYTES % (AUTO) 36.8 %; MEAN CORPUSCULAR HEMOGLOBIN 31.3 pg (27.0-31.0); MEAN CORPUSCULAR VOLUME 92.2 fL (80.0-94.0); MEAN PLATELET VOLUME 9.4 fL (7.4-11.4); MONOCYTES # (AUTO) 0.4 10^3/uL (0.0-1.0); NEUTROPHILS # (AUTO) 3.5 10^3/uL (1.5-6.6); NEUTROPHILS % (AUTO) 52.3 %; PLT - PLATELET COUNT 274 10^3/uL (130-450); RED CELL DISTRIBUTION WIDTH 13.7 % (12.0-15.0); WHITE BLOOD COUNT 6.7 x10^3/uL (4.8-10.8)
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
[2023-04-26 17:06] LABS: ALBUMIN 4.3 g/dL (3.2-5.5); ALBUMIN/GLOBULIN RATIO 1.2 (1.0-2.2); BILIRUBIN,TOTAL 0.5 mg/dL (0.2-1.0); CALCIUM 8.6 mg/dL (8.5-10.3); CREATININE 0.7 mg/dL (0.6-1.3); POTASSIUM 4.1 mmol/L (3.5-4.5)
[2023-04-26] MEDS ORDERED: KETOROLAC 30 MG/ML VIAL IVP STA (17:47)
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
[2023-04-26] MEDS ORDERED: ONDANSETRON 4 MG/2 ML VIAL IVP STA (19:36)
[2023-04-26] MEDS ORDERED: HYDROmorphone 1 MG/ML CARPUJECT IVP STA (19:36)
[2023-04-26] MEDS ORDERED: iohexoL-300 100 ML VIAL IVP ONE (19:46)
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
--- NOTE | 2023-04-26 22:43 | ED Physician Documentation ---
ED Addendum - Addendum Addendum: 04/26/23 22:41 I received signout/turnover of care on this patient from Dr. Landin; please see his note for complete history and physical. At the time of turnover, CTA of the chest and the abdomen/pelvis are pending. The CTA chest does not show any concerning/acute findings. The CT a abdomen pelvis does not demonstrate any vascular injuries. However, the hematoma along the spleen shows mild increase. Hematomas in the upper abdomen and the small hemoperitoneum are unchanged from previous study. He is AAOx3 on my exam; he has mild/moderate mid/upper abdominal tenderness. he is in no obvious distress. I explained to him that we will be transferring him to [facility] and he is agreeable with this plan. I discussed this case with Dr. Rivera (ED MD at [facility]), and he accepts transfer of patient to [facility] ED.
[2023-04-26 23:08] VITALS: O2SAT 97
[2023-04-26 23:17] VITALS: BP 147/90
== END 2023-04-26 23:22 | disposition short-term general hospital (02) ==
LOC: EDUNIT# → ED 16:13
DX: S36.118A Other injury of liver, initial encounter (principal); Y24.0XXA Airgun discharge, undetermined intent, initial encounter
CPT/HCPCS: 36415; 71045; 71250; 71275; 74174; 74176; 80053; 80320; 83690; 85025; 87635; 96374; 96375; 99285; J1170; Q9967

== ENCOUNTER 2023-09-15 11:14 | Emergency (ER) | payer MEDICAID ==
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
[2023-09-15 12:14] LABS: BASOPHILS # (AUTO) 0.1 10^3/uL (0.0-0.1); BASOPHILS % (AUTO) 0.8 %; EOSINOPHILS # (AUTO) 0.2 10^3/uL (0.0-0.7); EOSINOPHILS % (AUTO) 3.8 %; HCT - HEMATOCRIT 40.5 % (42.0-52.0); HGB - HEMOGLOBIN 13.8 g/dL (14.0-18.0); LYMPHOCYTES # (AUTO) 2.1 10^3/uL (1.5-3.5); LYMPHOCYTES % (AUTO) 34.1 %; MEAN CORPUSCULAR HEMOGLOBIN 31.9 pg (27.0-31.0); MEAN CORPUSCULAR HGB CONC 34.1 g/dL (32.0-36.0); MEAN CORPUSCULAR VOLUME 93.5 fL (80.0-94.0); MEAN PLATELET VOLUME 9.6 fL (7.4-11.4); MONOCYTES # (AUTO) 0.7 10^3/uL (0.0-1.0); MONOCYTES % (AUTO) 11.3 %; PLT - PLATELET COUNT 163 10^3/uL (130-450); RED BLOOD COUNT 4.33 10^6/uL (4.70-6.10); RED CELL DISTRIBUTION WIDTH 13.7 % (12.0-15.0)
[2023-09-15 12:21] LABS: MAGNESIUM 2.3 mg/dL (1.7-2.3)
[2023-09-15 12:28] LABS: ACETAMINOPHEN 0.1 ug/mL; ALBUMIN 4.4 g/dL (3.2-5.5); ALBUMIN/GLOBULIN RATIO 1.2 (1.0-2.2); ALKALINE PHOSPHATASE 66 IU/L (42-121); ALT ALANINE AMINOTRANSFERASE 276 IU/L (10-60); AST ASPARTATE AMINOTRANSFERASE 261 IU/L (10-42); BILIRUBIN,TOTAL 0.5 mg/dL (0.2-1.0); BUN - BLOOD UREA NITROGEN 11 mg/dL (6-20); CALCIUM 8.7 mg/dL (8.5-10.3); CARBON DIOXIDE - CO2 22 mmol/L (21-32); CHLORIDE 105 mmol/L (101-111); CK- CREATINE KINASE 102 IU/L (30-223); CREATININE 0.8 mg/dL (0.6-1.3); ETOH - ETHANOL 370.7 mg/dL; GFR - MDRD 99 (>89); GLUCOSE 95 mg/dL (74-104); LIPASE 43 U/L (11-82); POTASSIUM 3.9 mmol/L (3.5-4.5); SODIUM 136 mmol/L (135-145); TOTAL PROTEIN 8.2 g/dL (6.4-8.9)
[2023-09-15 12:29] LABS: SALICYLATE < 1.5 mg/dL
[2023-09-15] MEDS: FAMOTIDINE 20 MG/2 ML VIAL IVP STA (12:29)
[2023-09-15] MEDS: KETOROLAC 15 MG/ML VIAL IVP STA (12:29)
[2023-09-15] MEDS: THIAMINE INJ 100 MG, FOLIC ACID INJ 1 MG in SODIUM CHLORIDE 0.9% 1,000 ML IV STA (12:32)
[2023-09-15 12:39] LABS: THYROID STIMULATING HORMONE 2.94 uIU/mL (0.34-5.60)
[2023-09-15 12:48] LABS: BILIRUBIN,URINE NEGATIVE (NEGATIVE); GLUCOSE, URINE (UA) NEGATIVE (NEGATIVE); KETONES,URINE (UA) NEGATIVE (NEGATIVE); LEUKOCYTE ESTERASE, URINE NEGATIVE (NEGATIVE); NITRITE,URINE NEGATIVE (NEGATIVE); OCCULT BLOOD,URINE NEGATIVE (NEGATIVE); PH,URINE 5.5 PH (5.0-7.5); PROTEIN,URINE NEGATIVE (NEGATIVE); UROBILINOGEN,URINE 0.2 (NORMAL) E.U./dL (NORMAL)
[2023-09-15 12:54] LABS: CLARITY,URINE CLEAR (CLEAR)
[2023-09-15 12:57] LABS: AMPHETAMINE SCREEN,URINE NEGATIVE (NEGATIVE); BARBITURATE SCREEN,UR NEGATIVE (NEGATIVE); BENZODIAZEPINES SCREEN, URINE NEGATIVE (NEGATIVE); BUPRENORPHINE SCREEN, URINE NEGATIVE (NEGATIVE); COCAINE SCREEN URINE NEGATIVE (NEGATIVE); METHADONE SCREEN, URINE NEGATIVE (NEGATIVE); METHAMPHETAMINES SCREEN, URINE NEGATIVE (NEGATIVE); OPIATE SCREEN, URINE NEGATIVE (NEGATIVE); OXYCODONE SCREEN, URINE NEGATIVE (NEGATIVE); THC CANNABINOID SCREEN, URINE POSITIVE (NEGATIVE); TRICYCLIC ANTIDEPRESSANT,URINE NEGATIVE (NEGATIVE)
[2023-09-15] MEDS ORDERED: iohexoL-300 100 ML VIAL ONE (13:17)
[2023-09-15] MEDS: iohexoL-300 100 ML VIAL IVP ONE (13:56)
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
[2023-09-15 17:25] VITALS: BP 111/59; O2SAT 94
[2023-09-15] MEDS: SUCRALFATE 1 GM/10 ML UDC PO STA (17:41)
== END 2023-09-15 17:42 | disposition home or self-care (01) ==
LOC: ED 11:14 → EEVIPCON 11:14 → ED 17:42
DX: K29.00 Acute gastritis without bleeding (principal); K42.9 Umbilical hernia without obstruction or gangrene
CPT/HCPCS: 36415; 74177; 80053; 80143; 80179; 80306; 81003; 82077; 82550; 82607; 83690; 83735; 84443; 85025; 87635; 96365; 96366; 96375; 99284; A9270; J3411; Q9967; 81001; 87086

== ENCOUNTER 2023-10-28 15:34 | Outpatient (CLI) | payer MEDICAID | END 2023-10-28 15:35 | disposition critical access hospital (66) | LOC: EMS 15:34 | DX: I10 Essential (primary) hypertension (principal); R00.0 Tachycardia, unspecified; F10.129 Alcohol abuse with intoxication, unspecified | CPT/HCPCS: A0425; A0429; A0999 ==

== ENCOUNTER 2023-10-28 15:49 | Emergency (ER) | payer MEDICAID ==
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
[2023-10-28 16:08] VITALS: BP 193/99; O2SAT 95
== END 2023-10-28 16:50 | disposition home or self-care (01) ==
LOC: EDUNIT# → ED 15:49 → EEVIPCON 15:49 → ED 16:50
DX: I10 Essential (primary) hypertension (principal); F10.129 Alcohol abuse with intoxication, unspecified; Z91.148 Patient's other noncompliance with medication regimen for other reason
CPT/HCPCS: 99281; 99283